=== PATIENT | female | born 1965 | race Caucasian/White ===

== ENCOUNTER 2020-08-24 09:59 | Inpatient (IN) | payer OTHER, SELFPAY ==
[2020-08-24 11:25] LABS: ALT (SGPT) 24 U/L (8-55); AST (SGOT) 66 U/L (5-34); Albumin 3.7 g/dL (3.5-5.0); Alkaline Phosphatase 84 U/L (40-110); Anion Gap 18 mmol/L (10-20); BUN (Urea Nitrogen) 24 mg/dL (9.8-20.1); Bilirubin, Total 10.4 mg/dL (0.2-1.2); Calc. Creatinine Clearance 0 mL/min (70-130); Calcium 10.1 mg/dL (7.8-10.44); Carbon Dioxide 25 mmol/L (22-29); Chloride 94 mmol/L (98-107); Globulin 3.9 g/dL (2.4-3.5); Glucose 98 mg/dL (70-105); Potassium 3.5 mmol/L (3.5-5.1); Protein, Total 7.6 g/dL (6.0-8.3); Sodium 133 mmol/L (136-145)
[2020-08-24 11:33] LABS: Bilirubin 2+ (Negative); Blood, Urine 3+ (Negative); Clarity Turbid (Clear); Glucose, Urine (Dipstick) 100 mg/dL (Negative); Ketone, Urine Negative (Negative); Leukocyte Negative Leu/uL (Negative); Nitrite Negative (Negative); Protein, Urine (Dipstick) 600 mg/dL (Neg-Trace); Specific Gravity, Urine 1.022 (1.002-1.036); Urobilinogen Normal mg/dL (Less than 2)
[2020-08-24] MEDS ORDERED: Heparin 10,000 UNITS/ 10 ML VIAL ONE (11:35)
--- NOTE | 2020-08-24 11:35 | RAD ---
CHEST 1 VIEW: Date: 08/24/2020 HISTORY: Pain. End-stage renal disease. FINDINGS: There is a right-sided HemoSplit dialysis catheter terminating in the cavoatrial junction. Cardiomega ly. There are bilateral pleural effusions, left greater than right. There are scattered alveolar opac ities suggesting edema. No pneumothorax. IMPRESSION: Volume overload. POS: [facility]
[2020-08-24 11:50] LABS: Bacteria/HPF Rare-Few HPF (None Seen); Renal Epithelial 0-3 HPF (None Seen); WBC/HPF 0-3 HPF (0-3)
[2020-08-24 12:09] LABS: CKMB 2.4 ng/mL (0-6.6)
[2020-08-24 12:09] LABS: Hemoglobin 10.2 g/dL (12.0-16.0); Mean Corpuscular Hemoglobin 37.2 pg (27.0-31.0); RBC Distribution Width 20.3 % (11.5-14.5); Red Blood Cell (RBC) Count 2.74 mill/uL (4.20-5.40); White Blood Cell (WBC) Count 3.9 thou/uL (4.8-10.8)
[2020-08-24 12:23] LABS: Anisocytosis MODERATE=16-30 cells (100X) (0-5/hpf); Blister Cells SLIGHT = 2-5 cells (100X) (0-1/hpf); Burr Cells SLIGHT = 2-5 cells (100X) (0-1/hpf); MDiff Complete? YES; Macrocytosis MODERATE=16-30 cells (100X) (0-5/hpf); Mean Platelet Volume 10.4 fL (7.4-10.4); Ovalocytes SLIGHT = 2-5 cells (100X) (0-1/hpf); Platelet Count 41 thou/uL (130-400); Platelet Morphology Comment Appears Decreased; Poikilocytosis SLIGHT = 6-15 cells (100X) (0-5/hpf); Polychromasia SLIGHT = 2-3 cells (100X) (0-2/hpf); Schistocytes SLIGHT = 2-5 cells (100X) (0-1/hpf); Target Cells SLIGHT = 2-5 cells (100X) (0-1/hpf)
[2020-08-24] MEDS ORDERED: Bisacodyl 5 MG TAB PO PRN (14:44)
[2020-08-24] MEDS ORDERED: Nitroglycerin 0.4 MG TAB (25 Tab Bottle) SL PRN (14:45)
--- NOTE | 2020-08-24 15:04 | PDOC.HHP ---
Hospitalist HPI Generalized weakness History of Present Illness: Patient is a pleasant 55-year-old lady who was seen in the emergency room on August 24, 2020. Patient is a poor historian. She is able to provide only some history. Collateral history was obtained from review of medical record and discussion with emergency room physician. Patient reportedly has been having pain in her back and left hip for several days. She reports that it is from a fall. She also reports that she fell today morning. She presented to the emergency room because of back pain. She denies any cough, fevers or chills. She denies any nausea or vomiting. She was scheduled for dialysis today and missed dialysis. She was referred to hospitalist service for admission and further management. ED Course: BP: 101/57, Pulse: 71, Resp: 14, Temp: 98.5 (Oral), Pain: 10, O2 sat: 95 on (Room Air), Time: 08/24/2020 10:04. Allergies/Adverse Reactions: Allergy/AdvReac Type Severity Reaction Status Date / Time promethazine [From Phenergan] Allergy Verified 08/24/20 14:41 Home Medications: Medication Instructions Recorded Confirmed Type Furosemide 40 mg PO DAILY 08/24/20 08/24/20 History Gabapentin 100 mg PO TID 08/24/20 08/24/20 History Lactulose 30 ml PO BID 08/24/20 08/24/20 History Midodrine HCl 5 mg PO TID 08/24/20 08/24/20 History hydrOXYzine Pamoate [Hydroxyzine 25 mg PO Q6H PRN 08/24/20 08/24/20 History Pamoate] oxyCODONE HCl [Oxycodone HCl] 5 mg PO Q6H PRN 08/24/20 08/24/20 History traMADol HCl [Tramadol HCl] 50 mg PO Q12H PRN 08/24/20 08/24/20 History Past History: Past medical history: End-stage renal disease, hepatitis C, cirrhosis, liver failure Surgical history: Dialysis catheter through the right chest wall, left arm surgery and tubal ligation Psychiatric history: Depression Social history: Patient denies alcohol use or tobacco use. She reports marijuana use. Family history: No family history of premature coronary artery disease. Hospitalist OCTAVIA ROS Constitutional: reports: weakness Cardiovascular: denies: chest pain, palpitations, orthopnea, paroxysmal noc. dyspnea, edema, light headedness Gastrointestinal: denies: nausea, vomiting, abdominal pain, diarrhea, consti pation, melena, hematochezia Musculoskeletal: reports: back pain, other (Left hip pain) Neurological: reports: weakness Hospitalist Exam General Appearance: ill appearing Eye: scleral icterus ENT: normocephalic atraumatic Neck: supple, symmetric, no thyromegaly, no lymphadenopathy Heart: RRR, no gallops, no rubs, normal peripheral pulses Respiratory: no wheezes, normal chest expansion, normal percussion Respiratory - other findings: Bilateral crackles Gastrointestinal: soft, non-tender, non-distended, tender to palpation Skin: no rashes Psychiatric: normal affect, normal behavior, oriented to person, oriented to place Hospitalist Results Result Diagrams: 08/24/20 11:43 08/24/20 10:57 Lab results: Laboratory Last Values WBC 3.9 thou/uL (4.8-10.8) L 08/24/20 11:43 RBC 2.74 mill/uL (4.20-5.40) L 08/24/20 11:43 Hgb 10.2 g/dL (12.0-16.0) L 08/24/20 11:43 Hct 32.9 % (36.0-47.0) L 08/24/20 11:43 MCV 120.0 fL (78.0-98.0) H 08/24/20 11:43 MCH 37.2 pg (27.0-31.0) H 08/24/20 11:43 MCHC 31.0 g/dL (32.0-36.0) L 08/24/20 11:43 RDW 20.3 % (11.5-14.5) H 08/24/20 11:43 Plt Count 41 thou/uL (130-400) L 08/24/20 11:43 MPV 10.4 fL (7.4-10.4) 08/24/20 11:43 Neutrophils % (Manual) Not Reportable 08/24/20 11:43 Lymphocytes # Not Reportable 08/24/20 11:43 Plt Morphology Comment Appears Decreased L 08/24/20 11:43 Polychromasia SLIGHT = 2-3 cells (100X) (0-2/hpf) 08/24/20 11:43 Poikilocytosis SLIGHT = 6-15 cells (100X) (0-5/hpf) 08/24/20 11:43 Anisocytosis MODERATE=16-30 cells (100X) (0-5/hpf) H 08/24/20 11:43 Macrocytosis MODERATE=16-30 cells (100X) (0-5/hpf) H 08/24/20 11:43 Target Cells SLIGHT = 2-5 cells (100X) (0-1/hpf) 08/24/20 11:43 Ovalocytes SLIGHT = 2-5 cells (100X) (0-1/hpf) 08/24/20 11:43 Blister Cells SLIGHT = 2-5 cells (100X) (0-1/hpf) 08/24/20 11:43 Elsy Cells SLIGHT = 2-5 cells (100X) (0-1/hpf) 08/24/20 11:43 Schistocytes SLIGHT = 2-5 cells (100X) (0-1/hpf) 08/24/20 11:43 Sodium 133 mmol/L (136-145) L 08/24/20 10:57 Potassium 3.5 mmol/L (3.5-5.1) 08/24/20 10:57 Chloride 94 mmol/L (98-107) L 08/24/20 10:57 Carbon Dioxide 25 mmol/L (22-29) 08/24/20 10:57 Anion Gap 18 mmol/L (10-20) 08/24/20 10:57 BUN 24 mg/dL (9.8-20.1) H 08/24/20 10:57 Creatinine 5.92 mg/dL (0.6-1.1) H 08/24/20 10:57 Estimated GFR (MDRD) 7 08/24/20 10:57 Glucose 98 mg/dL (70-105) 08/24/20 10:57 Lactic Acid 3.0 mmol/L (0.5-2.2) H 08/24/20 14:00 Calcium 10.1 mg/dL (7.8-10.44) 08/24/20 10:57 Total Bilirubin 10.4 mg/dL (0.2-1.2) H 08/24/20 10:57 AST 66 U/L (5-34) H 08/24/20 10:57 ALT 24 U/L (8-55) 08/24/20 10:57 Alkaline Phosphatase 84 U/L (40-110) 08/24/20 10:57 CK-MB (CK-2) 2.4 ng/mL (0-6.6) 08/24/20 10:57 Troponin I 0.137 ng/mL (< 0.028) H 08/24/20 10:57 B-Natriuretic Peptide 3901.8 pg/mL (0-100) H 08/24/20 10:57 Serum Total Protein 7.6 g/dL (6.0-8.3) 08/24/20 10:57 Albumin 3.7 g/dL (3.5-5.0) 08/24/20 10:57 Globulin 3.9 g/dL (2.4-3.5) H 08/24/20 10:57 Albumin/Globulin Ratio 0.9 g/dL (1.2-2.2) L 08/24/20 10:57 Urine Color Dark-Yellow (Yellow) 08/24/20 10:38 Urine Clarity Turbid (Clear) A 08/24/20 10:38 Urine pH 8.0 (5.0-9.0) 08/24/20 10:38 Ur Specific Isabella 1.022 (1.002-1.036) 08/24/20 10:38 Urine Protein 600 mg/dL (Neg-Trace) A 08/24/20 10:38 Urine Glucose (UA) 100 mg/dL (Negative) A 08/24/20 10:38 Urine Ketones Negative mg/dL (Negative) 08/24/20 10:38 Urine Blood 3+ (Negative) A 08/24/20 10:38 Urine Nitrite Negative (Negative) 08/24/20 10:38 Urine Bilirubin 2+ (Negative) A 08/24/20 10:38 Urine Urobilinogen Normal mg/dL (Less than 2) 08/24/20 10:38 Ur Leukocyte Esterase Negative Ebenezer/uL (Negative) 08/24/20 10:38 Urine RBC 4-6 HPF (0-3) A 08/24/20 10:38 Urine WBC 0-3 HPF (0-3) 08/24/20 10:38 Ur Squamous Epith Cells 4-6 HPF (0-3) A 08/24/20 10:38 Ur Transition Epith Cell 11-20 HPF (None Seen) A 08/24/20 10:38 Ur Renal Epithelial Cell 0-3 HPF (None Seen) A 08/24/20 10:38 Urine Bacteria Rare-Few HPF (None Seen) 08/24/20 10:38 EKG Status: image reviewed by me (Normal sinus rhythm, low voltage QRS complexes) Chest x-ray Status: image reviewed by me Additional Comments: CHEST 1 VIEW: Date: 08/24/2020 HISTORY: Pain. End-stage renal disease. FINDINGS: There is a right-sided HemoSplit dialysis catheter terminating in the cavoatrial junction. Cardiomega ly. There are bilateral pleural effusions, left greater than right. There are scattered alveolar opac ities suggesting edema. No pneumothorax. IMPRESSION: Volume overload. Hospitalist H&P A/P (1) Generalized weakness Code(s): R53.1 - WEAKNESS Status: Acute (2) Elevated troponin Code(s): R77.8 - OTHER SPECIFIED ABNORMALITIES OF PLASMA PROTEINS Status: Acut e (3) Abnormal liver function tests Code(s): R94.5 - ABNORMAL RESULTS OF LIVER FUNCTION STUDIES Status: Acute (4) Lactic acidosis Code(s): E87.2 - ACIDOSIS Status: Acute (5) Hyponatremia Code(s): E87.1 - HYPO-OSMOLALITY AND HYPONATREMIA Status: Acute (6) End stage renal disease on dialysis Code(s): N18.6 - END STAGE RENAL DISEASE; Z99.2 - DEPENDENCE ON RENAL DIALYSIS Status: Chronic Plan: Patient will be admitted for evaluation for generalized weakness. PT eval and treat. Check lumbar spine and left hip x-rays. Check 2D echocardiogram to rule out pericardial effusion, given the low voltage QRS complexes. Consult nephrology for maintenance dialysis. Trend troponins. Etiology of lactic acidosis unclear, could be secondary to hypotension. Check blood cultures and urine studies. Patient does not have a primary care provider in this area, moved here from [place] 2 weeks ago. Level of risk: High Level of complexity: High Estimated length of stay in the hospital: Less than 2 midnights
[2020-08-24] MEDS ORDERED: Albumin 25% 25 GM/100 ML BOT IVPB SCH (16:00)
[2020-08-24 16:46] LABS: Troponin I 0.151 ng/mL (< 0.028)
[2020-08-24] MEDS ORDERED: Acetaminophen 325 MG TAB PO PRN (19:30)
[2020-08-24] MEDS ORDERED: Ondansetron ODT 4 MG TAB SL PRN (19:30)
[2020-08-24] MEDS ORDERED: Ondansetron PF 4 MG/2 ML Vial IVP PRN (19:30)
[2020-08-24] MEDS: Heparin 5,000 UNITS/ML VIAL SC SCH ×2 (20:19→20:20)
[2020-08-24 22:39] VITALS: BMI 38.2
--- NOTE | 2020-08-24 23:56 | RAD ---
EXAM: XR Lumbar Spine 2 Or 3 View PROVIDED CLINICAL HISTORY: Low back pain after a fall. COMPARISON: None FINDINGS: There is right convex curvature of the lumbar spine. Multilevel osteophytes are present. Facet hypert rophic changes are seen in the lower lumbar spine. Lateral view is rotated, but no definitive subluxation is seen. Vertebral body heights are within normal limits. No fracture is appreciated. Vas cular calcifications are seen in the abdominal aorta. Ossification overlie the pelvis likely related to phleboliths. IMPRESSION: Multilevel degenerative changes without obvious fracture or subluxation involving the lumbar spine.
--- NOTE | 2020-08-24 23:58 | RAD ---
Exam: XR Hip Lt 2-3 View HISTORY: Left hip pain after a fall. COMPARISON: None FINDINGS: No acute fracture, dislocation, or other acute osseous abnormality is identified. Mild left hip osteoarthritis is present. IMPRESSION: No acute osseous abnormality is identified. If the patient's pain persists, CT scan versus MRI left h ip would be more sensitive study of choice for evaluation of radiographically occult fracture.
[2020-08-25] MEDS: hydrOXYzine Pamoate 25 mg Capsule PO PRN ×2 (02:01→21:01)
[2020-08-25 04:37] LABS: Hemoglobin 9.8 g/dL (12.0-16.0); Mean Corpuscular HGB CONC 30.9 g/dL (32.0-36.0); Mean Corpuscular Hemoglobin 37.2 pg (27.0-31.0); Mean Platelet Volume 11.4 fL (7.4-10.4); Platelet Count 26 thou/uL (130-400); RBC Distribution Width 19.6 % (11.5-14.5); Red Blood Cell (RBC) Count 2.63 mill/uL (4.20-5.40)
[2020-08-25 04:52] LABS: Anion Gap 17 mmol/L (10-20); BUN (Urea Nitrogen) 15 mg/dL (9.8-20.1); Calc. Creatinine Clearance 26 mL/min (70-130); Calcium 9.6 mg/dL (7.8-10.44); Carbon Dioxide 24 mmol/L (22-29); Chloride 98 mmol/L (98-107); Glucose 94 mg/dL (70-105); Potassium 3.2 mmol/L (3.5-5.1); Sodium 136 mmol/L (136-145)
[2020-08-25 05:06] LABS: Band 3 % (5-11); Eosinophils 2 % (0-10); Lymphocytes 23 % (21-51); MDiff Complete? YES; Metamyelocyte 1 % (0-0); Monocytes 15 % (0-10); Neutrophil 56 % (42-75); Platelet Morphology Comment Appears Decreased
--- NOTE | 2020-08-25 06:21 | CON ---
DATE OF CONSULTATION: 08/24/2020 CONSULTING PHYSICIAN: Manjit Worrell MD REASON FOR CONSULTATION: End-stage renal disease evaluation and care. REASON FOR ADMISSION: Weakness. HISTORY OF PRESENT ILLNESS: This is a 55-year-old female with history of end-stage renal disease, hepatitis C, and cirrhosis, came to the hospital with weakness and was found to have fluid overload. Nephrology consulted for dialysis. She gets dialysis on Friday, , and Friday. No nausea or vomiting. The patient was seen during dialysis. Denies any chest pain, palpitation. PAST MEDICAL HISTORY: Positive for end-stage renal disease, hepatitis C, and cirrhosis. PAST SURGICAL HISTORY: Dialysis access placement, left arm surgery, tubal ligation. HOME MEDICATIONS: Reviewed. SOCIAL HISTORY: No smoking, alcohol. She has a history of marijuana use. FAMILY HISTORY: No history of kidney disease. REVIEW OF SYSTEMS: CONSTITUTIONAL: Negative for weight loss or gain, ability to conduct usual activities. SKIN: Negative for rash, itching. EYES: Negative for double vision, pain. ENT/MOUTH: Negative for nose bleeding, neck stiffness, pain, tenderness. CARDIOVASCULAR: Negative for palpitations, dyspnea on exertion, orthopnea. RESPIRATORY: Negative for shortness of breath, wheezing, cough, hemoptysis, fever or night sweats. GASTROINTESTINAL: Negative for poor appetite, abdominal pain, heartburn, nausea, vomiting, constipation, or diarrhea. GENITOURINARY: Negative for urgency, frequency, dysuria, nocturia. MUSCULOSKELETAL: Negative for pain, swelling. NEUROLOGIC/PSYCHIATRIC: Negative for anxiety, depression. ALLERGY/IMMUNOLOGIC: Negative for skin rash, bleeding tendency. PHYSICAL EXAMINATION: GENERAL: This is a well-built female, in no apparent distress. VITAL SIGNS: Temperature 98.5, pulse 71, respiratory rate 20, and blood pressure 101/57. HEENT: Atraumatic and normocephalic. Oral mucosa moist. NECK: Supple. CV: S1 and S2 heard. Rate and rhythm regular. RESPIRATORY: Clear. GI: Abdomen is soft. MUSCULOSKELETAL: 1+ edema. DERMATOLOGIC: No skin rash. NEUROLOGICAL: Alert and awake. PSYCHIATRIC: Normal mood and affect. LABORATORY DATA: Hemoglobin is 10.2. Potassium is 3.5, BUN is 24, creatinine is 5.9. ASSESSMENT AND PLAN: 1. End-stage renal disease. Continue on hemodialysis as tolerated. 2. Edema. 3. History of hypertension. 4. Anemia of chronic disease. The patient is seen during dialysis, tolerating well. Continue dialysis, but due to hypotension, not able to have much ultrafiltration. The patient said that she is due for paracentesis too. We will continue on dialysis as tolerated. Thank you for the consult. Job ID: [id number]
[2020-08-25] MEDS: Midodrine HCl 5 MG TAB PO SCH ×3 (08:11→21:01)
[2020-08-25] MEDS ORDERED: Aspirin Chewable 81 MG TAB PO SCH (09:00)
[2020-08-25 09:32] LABS: SARS-CoV-2 PCR by NAA Not Detected (NotDetected)
[2020-08-25] MEDS ORDERED: Potassium Chloride 20 MEQ TAB PO SCH (11:00)
--- NOTE | 2020-08-25 15:56 | PRG ---
DATE OF SERVICE: 08/25/2020 SUBJECTIVE: Patient was seen and examined at bedside and overnight events noted. Patient denies any shortness of breath or chest pain or palpitation. No history of nausea or vomiting or diarrhea or fever or chills or cramps. OBJECTIVE: GENERAL: This is a well-built female, in no apparent distress. VITAL SIGNS: Temperature 97.1. Heart rate 74. Respiratory rate 14. Blood pressure 86/47. HEENT: Atraumatic, normocephalic. Oral mucosa is moist NECK: Supple. CARDIOVASCULAR: S1, S2 heard. Rate and rhythm regular. RESPIRATORY: Clear to auscultation. GASTROINTESTINAL: Abdomen is soft. MUSCULOSKELETAL: No tenderness. No edema. DERMATOLOGIC: No skin rash. NEUROLOGIC: Alert and awake and oriented X3. No focal neurologic deficits. Moving all the extremities. PSYCHIATRIC: Mood and affect normal. LABORATORY DATA: Potassium 3.2, BUN is 15, creatinine is 4.3. ASSESSMENT AND PLAN: 1. End-stage renal disease. Continue dialysis. 2. Edema hypertension. 3. Anemia of chronic disease. Continue on dialysis as tolerated. Job ID: [id number]
--- NOTE | 2020-08-25 17:52 | PDOC.HOSPP ---
- Subjective Encounter Date: 08/25/20 Encounter Time: 17:51 Subjective: Patient seen for follow-up regarding generalized weakness. Sleepy but arousable, denies chest pain or shortness of breath. Reports back pain is better. - Objective Vital Signs & Weight: Vital Signs (12 hours) Temp Pulse Pulse Pulse Pulse Resp BP 08/25/20 15:47 97.8 F 72 12 08/25/20 11:56 97.1 F L 72 14 08/25/20 10:11 72 74 75 92/53 L 08/25/20 09:42 08/25/20 07:50 97.5 F L 73 16 BP BP BP Pulse Ox 08/25/20 15:47 102/55 L 95 08/25/20 11:56 86/47 L 95 08/25/20 10:11 96/51 L 103/56 L 08/25/20 09:42 81/42 L 08/25/20 07:50 87/49 L 98 Weight Weight 251 lb 5 oz I&O: 08/24/20 08/25/20 08/26/20 06:59 06:59 06:59 Intake Total 350 Output Total 12 Balance 338 Result Diagrams: 08/25/20 04:12 08/25/20 04:12 Additional Labs: Labs and MAR reviewed by me EKG Reviewed by me: Yes (Telemetry shows normal sinus rhythm) Hospitalist ROS - Review of Systems Cardiovascular: denies: chest pain, palpitations, orthopnea, paroxysmal noc. dys pnea, edema, light headedness Musculoskeletal: reports: back pain Skin: denies: rash, lesions, rivka, bruising - Medication Medications: Active Medications Generic Name Dose Route Start Last Admin Trade Name Freq PRN Reason Stop Dose Admin Hydroxyzine Pamoate 25 mg 08/25/20 00:54 08/25/20 02:01 Hydroxyzine Pamoate 25 Mg Capsule PO 25 mg Q6H PRN Administration Anxiety Midodrine 5 mg 08/25/20 09:00 08/25/20 15:59 Midodrine Hcl 5 Mg Tab PO 5 mg TID SANJAY Administration Hospitalist Exam Vitals: Vital Signs (12 hours) Temp Pulse Pulse Pulse Pulse Resp BP 08/25/20 15:47 97.8 F 72 12 08/25/20 11:56 97.1 F L 72 14 08/25/20 10:11 72 74 75 92/53 L 08/25/20 09:42 08/25/20 07:50 97.5 F L 73 16 BP BP BP Pulse Ox 08/25/20 15:47 102/55 L 95 08/25/20 11:56 86/47 L 95 08/25/20 10:11 96/51 L 103/56 L 08/25/20 09:42 81/42 L 08/25/20 07:50 87/49 L 98 Weight Weight 251 lb 5 oz General Appearance: awake alert Eye: anicteric sclera ENT: normocephalic atraumatic Neck: supple Heart: RRR Respiratory: CTAB Gastrointestinal: soft, non-tender Skin: no rashes Psychiatric: normal affect, normal behavior Hosp A/P (1) Generalized weakness Code(s): R53.1 - WEAKNESS Status: Acute (2) Elevated troponin Code(s): R77.8 - OTHER SPECIFIED ABNORMALITIES OF PLASMA PROTEINS Status: Acute (3) Abnormal liver function tests Code(s): R94.5 - ABNORMAL RESULTS OF LIVER FUNCTION STUDIES Status: Acute (4) Lactic acidosis Code(s): E87.2 - ACIDOSIS Status: Acute (5) Hyponatremia Code(s): E87.1 - HYPO-OSMOLALITY AND HYPONATREMIA Status: Acute (6) End stage renal disease on dialysis Code(s): N18.6 - END STAGE RENAL DISEASE; Z99.2 - DEPENDENCE ON RENAL DIALYSIS Status: Chronic - Plan (1) Generalized weakness Code(s): R53.1 - WEAKNESS Status: Acute (2) Elevated troponin Code(s): R77.8 - OTHER SPECIFIED ABNORMALITIES OF PLASMA PROTEINS Status: Acute (3) Abnormal liver function tests Code(s): R94.5 - ABNORMAL RESULTS OF LIVER FUNCTION STUDIES Status: Acute (4) Lactic acidosis Code(s): E87.2 - ACIDOSIS Status: Acute (5) Hyponatremia Code(s): E87.1 - HYPO-OSMOLALITY AND HYPONATREMIA Status: Acute (6) End stage renal disease on dialysis Code(s): N18.6 - END STAGE RENAL DISEASE; Z99.2 - DEPENDENCE ON RENAL DIALYSIS Status: Chronic Plan: Generalized weakness improving. PT eval and treat. Nil acute on lumbar spine and left hip x-rays. Elevated troponin likely secondary to end-stage renal disease, patient denies any chest pain. Nephrology following for maintenance dialysis. Patient has a history of chronic hypotension and is on midodrine for the same. Likely home in 24 to 48 hours.
[2020-08-26 04:39] LABS: Mean Corpuscular HGB CONC 31.1 g/dL (32.0-36.0); Mean Corpuscular Hemoglobin 37.7 pg (27.0-31.0); Mean Platelet Volume 11.8 fL (7.4-10.4); Platelet Count 27 thou/uL (130-400); RBC Distribution Width 20.2 % (11.5-14.5); Red Blood Cell (RBC) Count 2.64 mill/uL (4.20-5.40); White Blood Cell (WBC) Count 2.6 thou/uL (4.8-10.8)
[2020-08-26 04:50] LABS: Anion Gap 18 mmol/L (10-20); BUN (Urea Nitrogen) 20 mg/dL (9.8-20.1); Calc. Creatinine Clearance 22 mL/min (70-130); Carbon Dioxide 23 mmol/L (22-29); Chloride 97 mmol/L (98-107); Glucose 102 mg/dL (70-105); Potassium 3.6 mmol/L (3.5-5.1); Sodium 134 mmol/L (136-145)
[2020-08-26 05:34] LABS: Eosinophils 2 % (0-10); Lymphocytes 40 % (21-51); MDiff Complete? YES; Monocytes 15 % (0-10); Myelocyte 1 % (0-0); Neutrophil 42 % (42-75); Platelet Clumps SLIGHT; Platelet Morphology Comment Appears Adequate
[2020-08-26] MEDS: hydrOXYzine Pamoate 25 mg Capsule PO PRN (06:09)
[2020-08-26] MEDS ORDERED: Heparin 10,000 UNITS/ 10 ML VIAL ONE (09:47)
--- NOTE | 2020-08-26 12:00 | PRG ---
DATE OF SERVICE: 08/26/2020 SUBJECTIVE: Patient was seen and examined at bedside and overnight events noted. Patient denies any shortness of breath or chest pain or palpitation. No history of nausea or vomiting or diarrhea or fever or chills or cramps. OBJECTIVE: General: This is a well-built female, in no apparent distress. Vital Signs: Temperature . Heart Rate 71. Respiratory rate 18. Blood pressure 94/50. HEENT: Atraumatic, normocephalic. Oral mucosa is moist. Neck: Supple. Cardiovascular: S1, S2 heard. Rate and rhythm regular. Respiratory: Clear to auscultation. Gastrointestinal: Abdomen is soft. Musculoskeletal: No tenderness. No edema. Dermatologic: No skin rash. Neurologic: Alert and awake and oriented x3. No focal neurologic deficits. Moving all the extremities. Psychiatric: Mood and affect normal. LABORATORY DATA: Potassium 3.6, BUN is 20, creatinine is 5.1. ASSESSMENT AND PLAN: 1. End-stage renal disease, continue on dialysis, TTS. 2. Edema. 3. Hypertension. 4. Anemia of chronic disease. Continue on dialysis on Friday, , and Friday as tolerated. Job ID: [id number]
[2020-08-26 12:35] LABS: HBSAg Index 0.29 S/CO (0-0.99); Hep B Surf Ag Non-Reactive S/CO (NonReactive)
[2020-08-26] MEDS: Midodrine HCl 5 MG TAB PO SCH ×2 (14:45→15:33)
--- NOTE | 2020-08-26 15:29 | PDOC.DS.DS ---
Provider Date of Admission: 08/25/20 16:10 Date of Discharge: 08/26/20 Admitting Provider: Manjit Worrell MD Consultations: Nephrology (Dr. Velásquez) Primary Care Physician: FERNANDO SHARPE MD Course Hospital Course: Discharge diagnosis: 1. Generalized weakness 2. Elevated troponin, likely secondary to end-stage renal disease 3. Hypokalemia 4. Hyponatremia 5. Lactic acidosis 6. Covid test negative Hospital course: Patient is a pleasant 55-year-old lady who was admitted to the hospital on March 24, 2021 for generalized weakness, elevated troponin, lactic acidosis, hyponatremia and end-stage renal disease on dialysis. This was in the context of a recent fall. X-rays of the left hip did not show any acute osseous abnormality. Lumbar spine x-rays showed multilevel degenerative changes without obvious fracture or subluxation involving the lumbar spine. 2D echocardiogram was technically difficult examination, showed a small pericardial effusion, left pleural effusion, left ventricle ejection fraction estimated 50 to 55%, moderately enlarged right ventricle cavity, mildly dilated left atrium, moderately enlarged right atrium, mild mitral regurgitation and mild to moderate tricuspid regurgitation. Patient was seen by nephrology service. She underwent hemodialysis. She also improved symptomatically. She was seen by physical therapy service and was recommended home health for physical therapy. She has been advised to follow-up with her primary care provider to arrange for the same. In terms of the elevated troponin, patient did not have any chest pain. There was no arrhythmias on telemetry. The elevated troponin was most likely second meghan to end-stage renal disease. At the time of this dictation, preliminary blood cultures are negative. She is advised to follow-up with her primary care provider for final blood culture results. Many thanks for allowing me to participate in your patient's care. Please feel free to contact me with any questions or concerns. Discharge destination: Home Total amount of time spent coordinating this discharge: 32 minutes Lab Results: 08/26/20 04:04 08/26/20 04:04 Abnormal Lab Results - Last 48 hrs 08/24/20 16:09: Troponin I 0.151 H 08/24/20 18:22: Troponin I 0.120 H 08/25/20 04:12: Potassium 3.2 L, Creatinine 4.32 H 08/25/20 04:12: WBC 3.0 L, RBC 2.63 L, Hgb 9.8 L, Hct 31.6 L, MCV 120.0 H, MCH 37.2 H, MCHC 30.9 L, RDW 19.6 H, Plt Count 26 L*, MPV 11.4 H, Band Neuts % (Manual) 3 L, Monocytes % (Manual) 15 H, Plt Morphology Comment Appears Decreased L 08/26/20 04:04: Sodium 134 L, Chloride 97 L, Creatinine 5.16 H 08/26/20 04:04: WBC 2.6 L, RBC 2.64 L, Hgb 10.0 L, Hct 31.9 L, MCV 121.0 H, MCH 37.7 H, MCHC 31.1 L, RDW 20.2 H, Plt Count 27 L*, MPV 11.8 H, Monocytes % (Manual) 15 H, Myelocytes % 1 H Microbiology - Entire Visit 08/24/20 16:02 Dialysis - Right Subclavian Vein Blood Culture - Preliminary NO GROWTH AT 48 HOURS 08/24/20 16:02 Dialysis - Right Subclavian Vein Blood Culture - Preliminary NO GROWTH AT 48 HOURS Vitals: Vital Signs (12 hours) Temp Pulse Resp BP Pulse Ox 08/26/20 11:33 98.3 F 71 17 94/50 L 96 08/26/20 07:52 97.8 F 76 18 91/53 L 93 L 08/26/20 04:00 97.5 F L 72 17 92/47 L 97 Weight Admit Weight 251 lb 5 oz Weight 251 lb 5 oz Physical Exam: The patient was seen and examined on the day of discharge. Patient denies chest pain or shortness of breath. Vital signs are stable. S1 and S2 are heard. Lungs are clear to auscultation bilaterally. Problem (1) Generalized weakness Code(s): R53.1 - WEAKNESS Status: Acute (2) Elevated troponin Code(s): R77.8 - OTHER SPECIFIED ABNORMALITIES OF PLASMA PROTEINS Status: Acute (3) Abnormal liver function tests Code(s): R94.5 - ABNORMAL RESULTS OF LIVER FUNCTION STUDIES Status: Acute (4) Lactic acidosis Code(s): E87.2 - ACIDOSIS Status: Acute (5) Hyponatremia Code(s): E87.1 - HYPO-OSMOLALITY AND HYPONATREMIA Status: Acute (6) End stage renal disease on dialysis Code(s): N18.6 - END STAGE RENAL DISEASE; Z99.2 - DEPENDENCE ON RENAL DIALYSIS Status: Chronic Plan Home Medications: Medication Instructions Recorded Confirmed Type Furosemide 40 mg PO DAILY 08/24/20 08/24/20 History Gabapentin 100 mg PO TID 08/24/20 08/24/20 History Lactulose 30 ml PO BID 08/24/20 08/24/20 History Midodrine HCl 5 mg PO TID 08/24/20 08/24/20 History hydrOXYzine Pamoate [Hydroxyzine 25 mg PO Q6H PRN 08/24/20 08/24/20 History Pamoate] oxyCODONE HCl [Oxycodone HCl] 5 mg PO Q6H PRN 08/24/20 08/24/20 History traMADol HCl [Tramadol HCl] 50 mg PO Q12H PRN 08/24/20 08/24/20 History Allergies: promethazine [From Phenergan] Allergy (Verified 08/24/20 14:41) Discharge Instructions:: Follow-up with primary care provider for final blood culture reports. Follow-up with primary care provider to arrange home health for physical therapy. Activity:: Activity as Tolerated Nourishment:: Heart Healthy Diet, Renal Diet Referrals: FERNANDO SHARPE MD [Primary Care Provider] - 3 Days Disposition: HOME Quality CORE MEASURES:: N/A
[2020-08-26 15:56] VITALS: BP 87/52; TEMP 97.9
--- NOTE | 2020-08-30 13:23 | EKG ---
Test Reason : Blood Pressure : / mmHG Vent. Rate : 084 BPM Atrial Rate : 070 BPM P-R Int : 136 ms QRS Dur : 108 ms QT Int : 544 ms P-R-T Axes : 030 082 022 degrees QTc Int : 642 ms Sinus rhythm with occasional , and consecutive Premature ventricular complexes and Fusion complexes Low voltage QRS Septal infarct , age undetermined Prolonged QT Abnormal ECG Confirmed by CUCO DENNIS ([id number]), purchasing expeditor LEILA BOWDEN ([id number]) on 08/30/2020 1:23:00 PM Referred By: Confirmed By:CUCO Lucia
== END 2020-08-26 17:37 | disposition home or self-care (01) | DRG 640 ==
LOC: ERS 09:59 → ERHOLD 14:29 → 2NO 19:06 → OBSVTOIN 08-25 16:10
PROVIDERS: ADMIT Internal Medicine; ATTEND Internal Medicine
PROC: 5A1D70Z Performance of Urinary Filtration, Intermittent, Less than 6 Hours Per Day (ICD-10-PCS; principal; 2020-08-25)
DX: E87.1 Hypo-osmolality and hyponatremia (principal); N18.6 End stage renal disease; E87.2 Acidosis; Z20.822 Contact with and (suspected) exposure to COVID-19; E87.6 Hypokalemia; R79.89 Other specified abnormal findings of blood chemistry; I08.1 Rheumatic disorders of both mitral and tricuspid valves; B18.2 Chronic viral hepatitis C; K74.60 Unspecified cirrhosis of liver; F32.9 Major depressive disorder, single episode, unspecified; F12.10 Cannabis abuse, uncomplicated; D63.1 Anemia in chronic kidney disease; I95.89 Other hypotension; Z88.8 Allergy status to other drugs, medicaments and biological substances; Z99.2 Dependence on renal dialysis; Z79.899 Other long term (current) drug therapy
CPT/HCPCS: 36415; 51701; 71045; 72100; 80048; 80053; 81003; 81015; 82553; 83605; 83880; 84484; 85025; 87340; 87635; 90935; 93005; 93306; 94760; G0257; G0378; J1644; P9047; Q0177; U0003; U0005

== ENCOUNTER 2020-09-09 10:52 | Inpatient (IN) | payer SELFPAY ==
[~2020-09-09 10:52] MED LIST: Heparin 10,000 UNITS/ 10 ML VIAL ONE
[2020-09-09] MEDS ORDERED: Iopamidol-370 76% 500 ML 1 ML ONE (11:33)
[2020-09-09 11:52] LABS: #Eosinphils 0.1 thou/uL (0.0-0.7); #Lymphocytes 1.3 thou/uL (1.20-3.40); #Monocytes 0.6 thou/uL (0.11-0.59); #Neutrophils 2.1 thou/uL (1.40-6.50); %Basophils 0.6 % (0.0-1.0); %Eosinophils 2.4 % (0.0-10.0); %Lymphocytes 31.6 % (21.0-51.0); %Monocytes 14.2 % (0.0-10.0); %Neutrophils 51.1 % (42.0-75.0); Hemoglobin 10.4 g/dL (12.0-16.0); Mean Corpuscular HGB CONC 31.4 g/dL (32.0-36.0); Mean Corpuscular Hemoglobin 37.2 pg (27.0-31.0); Mean Platelet Volume 9.6 fL (7.4-10.4); Platelet Count 55 thou/uL (130-400); RBC Distribution Width 17.7 % (11.5-14.5); White Blood Cell (WBC) Count 4.2 thou/uL (4.8-10.8)
--- NOTE | 2020-09-09 11:59 | RAD ---
PORTABLE CHEST: HISTORY: Shortness of breath. COMPARISON: 08/24/2020 exam. FINDINGS: Heart size is enlarged. The pulmonary vessels remain engorged. Left-sided effusion may be slightly increased as compared to the prior exam. Otherwise, relatively stable chest. IMPRESSION: Cardiomegaly with pulmonary edema changes. Suggestion of some slight increase in size to the left si de-pleural effusion. POS: JOSE
[2020-09-09 12:11] LABS: ALT (SGPT) 25 U/L (8-55); AST (SGOT) 64 U/L (5-34); Albumin 3.3 g/dL (3.5-5.0); Alkaline Phosphatase 93 U/L (40-110); Anion Gap 18 mmol/L (10-20); BUN (Urea Nitrogen) 29 mg/dL (9.8-20.1); Bilirubin, Total 13.1 mg/dL (0.2-1.2); Calc. Creatinine Clearance 0 mL/min (70-130); Calcium 10.3 mg/dL (7.8-10.44); Carbon Dioxide 29 mmol/L (22-29); Chloride 96 mmol/L (98-107); Glucose 72 mg/dL (70-105); Potassium 3.5 mmol/L (3.5-5.1); Protein, Total 7.3 g/dL (6.0-8.3); Sodium 139 mmol/L (136-145)
[2020-09-09 12:17] LABS: Base Excess-Venous 3.2 mmol/L (-2.0 to 3.0); Bicarbonate (HCO3v) 28.6 mmol/L (22.0-28.0); CO2 Tension (PvCO2) 46.2 mmHg (40.0-50.0); Chloride 96 mmol/L (98-107); Potassium 3.7 mmol/L (3.5-5.1); Sodium 137 mmol/L (138-145); vO2 Saturation-calc 52.4 % (60.0-85.0)
[2020-09-09 12:27] LABS: Bilirubin Large (Negative); Blood, Urine Large (Negative); Glucose, Urine (Dipstick) Negative (Negative); Ketone, Urine 15 mg/dL (Negative); Leukocyte Trace (Negative); Nitrite Positive (Negative); Protein, Urine (Dipstick) > or equal to 300 mg/dL (Neg-Trace); Urobilinogen 0.2 mg/dL (Less than 2)
[2020-09-09 12:33] LABS: CKMB 1.9 ng/mL (0-6.6)
[2020-09-09 12:38] LABS: Clarity Hazy (Clear)
[2020-09-09 12:40] LABS: Specific Gravity, Urine 1.025 (1.002-1.036)
[2020-09-09 12:41] LABS: Squamous Epithelial 0-3 HPF (0-3); Yeast-Budding 1+ HPF (None Seen)
[2020-09-09] MEDS ORDERED: cefTRIAXone\\ROCEPHIN 2 GM VIAL ONE (13:50)
[2020-09-09 13:56] LABS: SARS-CoV-2 NAA Rapid Test Not Detected (NotDetected)
--- NOTE | 2020-09-09 13:59 | CT ---
CTA Angio Chest W WO Con History: Shortness of breath Comparison: Radiograph same day Findings: CT in December chest performed after the intravenous ministration of contrast. 3-D rendering pr ovided. Large left layering pleural effusion involving 60-70% of the hemithorax volume.. Alveolar opacities w ithin the right upper lobe. Heart size is markedly enlarged. The inferior vena cava is markedly distended. Liver is small and lik ama cirrhotic. Cholelithiasis. Aortic contour is nonaneurysmal. Hypodensity of the left adrenal vein incompletely evaluated. High-grade third spacing of fluid. No proximal segmental pulmonary arterial filling defect. Sternum a nd manubrium are intact. Thoracic spine is intact. Satisfactory location of the dialysis catheter tip. No acute osseous abnormality. Impression: 1. Large left layering pleural effusion involving approximate 70% of the hemithorax volume. Compressi ve atelectasis within left lower lobe and lingula. 2. Few groundglass opacities within the right upper lobe may reflect infection/aspiration and less li melissa alveolar edema. 3. Cardiomegaly with left ventricular apical thinning likely sequelae of prior infarction. 4. Marked distention of the inferior vena cava likely sequelae of increased right heart pressures. 5. Small cirrhotic liver. 6. Cholelithiasis. 7. Splenomegaly likely portal hypertension. 8. Incomplete evaluation of left adrenal nodule. Nonemergent abdomen/pelvis CT recommended. 9. [id number] third spacing of fluid.
[2020-09-09] MEDS ORDERED: Acetaminophen 325 MG TAB PO PRN (16:04)
[2020-09-09] MEDS ORDERED: Ondansetron PF 4 MG/2 ML Vial IVP PRN (16:04)
--- NOTE | 2020-09-09 17:01 | PDOC.HHP ---
Hospitalist HPI SOB History of Present Illness: Patient is 55 year-old female with PMH of ESRD on HD (), HTD, Hep C cirrhosis, and DDD who presents to the ED with CC of SOB that started today. Patient missed her HD 2 days ago due weather condition, today she was planing to go to her dialysis center but was unable to do that due to SOB. She also reports some cough with intermittent phlegm. She denies fever or chills. She also reports back pain that has been going on for about 1 month. Patient was admitted here from 08/25-08/26/2020 for generalized weakness and electrolyte abnormalities. ED Course: In the ED, patient was noted to be tachypenic but Spo2 in the mid 90's on RA. CTA chest showed large left-sided pleural effusion. Allergies/Adverse Reactions: Allergy/AdvReac Type Severity Reaction Status Date / Time promethazine [From Phenergan] Allergy Verified 08/24/20 14:41 Home Medications: Medication Instructions Recorded Confirmed Type Furosemide 40 mg PO DAILY 08/24/20 08/24/20 History Gabapentin 100 mg PO TID 08/24/20 08/24/20 History Lactulose 30 ml PO BID 08/24/20 08/24/20 History Midodrine HCl 5 mg PO TID 08/24/20 08/24/20 History hydrOXYzine Pamoate [Hydroxyzine 25 mg PO Q6H PRN 08/24/20 08/24/20 History Pamoate] oxyCODONE HCl [Oxycodone HCl] 5 mg PO Q6H PRN 08/24/20 08/24/20 History traMADol HCl [Tramadol HCl] 50 mg PO Q12H PRN 08/24/20 08/24/20 History Past History: PMHx: ESRD on HD (), HTD, Hep C cirrhosis, and DDD PSHx: Right-side Permcath placement, Tubal ligation, Left arm surgery FHx: non-contributory Social: uses marijuana infrequently, denies alcohol use or smoking Hospitalist HPI ROS Constitutional: denies: fever, chills Respiratory: reports: cough, shortness of breath Cardiovascular: denies: chest pain Gastrointestinal: denies: nausea, vomiting Genitourinary: denies: dysuria All other systems reviewed; all pertinent +/- noted in HPI/Subj Hospitalist Exam General Appearance: NAD Eye: PERRL, scleral icterus ENT: dry oral mucosa Neck: no JVD Heart: RRR, no murmur Respiratory - other findings: Crackles and decreased breath sound on the left side, clear on the right Gastrointestinal: soft, non-tender, non-distended Extremities: 1+ LE edema (bilaterally) Neurological - other findings: initially drowsy but later became alert Psychiatric: oriented to person, oriented to time Hospitalist Results Result Diagrams: 09/09/20 11:33 09/09/20 11:33 Lab results: Laboratory Last Values WBC 4.2 thou/uL (4.8-10.8) L 09/09/20 11:33 RBC 2.80 mill/uL (4.20-5.40) L 09/09/20 11:33 Hgb 10.4 g/dL (12.0-16.0) L 09/09/20 11:33 Hct 33.2 % (36.0-47.0) L 09/09/20 11:33 POC Venous Hct 32.0 % (36.0-47.0) L 09/09/20 11:21 MCV 119.0 fL (78.0-98.0) H 09/09/20 11:33 MCH 37.2 pg (27.0-31.0) H 09/09/20 11:33 MCHC 31.4 g/dL (32.0-36.0) L 09/09/20 11:33 RDW 17.7 % (11.5-14.5) H 09/09/20 11:33 Plt Count 55 thou/uL (130-400) L 09/09/20 11:33 MPV 9.6 fL (7.4-10.4) 09/09/20 11:33 Neutrophils % 51.1 % (42.0-75.0) 09/09/20 11:33 Neutrophils % (Manual) Not Reportable 09/09/20 11:33 Lymphocytes % 31.6 % (21.0-51.0) 09/09/20 11:33 Monocytes % 14.2 % (0.0-10.0) H 09/09/20 11:33 Eosinophils % 2.4 % (0.0-10.0) 09/09/20 11:33 Basophils % 0.6 % (0.0-1.0) 09/09/20 11:33 Neutrophils # 2.1 thou/uL (1.40-6.50) 09/09/20 11:33 Lymphocytes # 1.3 thou/uL (1.20-3.40) 09/09/20 11:33 Monocytes # 0.6 thou/uL (0.11-0.59) H 09/09/20 11:33 Eosinophils # 0.1 thou/uL (0.0-0.7) 09/09/20 11:33 Basophils # 0.0 thou/uL (0.0-0.2) 09/09/20 11:33 ESR Westergren 18 mm/hr (Less than 30) 09/09/20 11: D-Dimer 5.61 *mcg/mL (0.27-0.43) H 09/09/20 11:33 POC Bicarbonate Calc 28.6 mmol/L (22.0-28.0) H 09/09/20 11:21 POC VBG pH 7.400 (7.320-7.430) 09/09/20 11: VBG pCO2 46.2 mmHg (40.0-50.0) 09/09/20 11: VBG pO2 28.2 mmHg (35.0-45.0) L 09/09/20 11:21 POC VBG CO2 (Calc) 30.0 mmol/L (22.0-28.0) H 09/09/20 11:21 POC VBG O2 Sat (Calc) 52.4 % (60.0-85.0) L 09/09/20 11:21 POC VBG Base Excess 3.2 mmol/L (-2.0 to 3.0) H 09/09/20 11: POC VBG Hemoglobin Calc 11.0 g/dL (12.0-16.0) L 09/09/20 11: POC Venous Sodium 137 mmol/L (138-145) L 09/09/20 11: Sodium 139 mmol/L (136-145) 09/09/20 11:33 POC Venous Potassium 3.7 mmol/L (3.5-5.1) 09/09/20 11: Potassium 3.5 mmol/L (3.5-5.1) 09/09/20 11:33 POC Venous Chloride 96 mmol/L (98-107) L 09/09/20 11:21 Chloride 96 mmol/L (98-107) L 09/09/20 11:33 Carbon Dioxide 29 mmol/L (22-29) 09/09/20 11:33 Anion Gap 18 mmol/L (10-20) 09/09/20 11:33 POC Harvey Anion Gap Calc 16 mmol/L (10-20) 09/09/20 11:21 BUN 29 mg/dL (9.8-20.1) H 09/09/20 11:33 Creatinine 6.99 mg/dL (0.6-1.1) H 09/09/20 11:33 Estimated GFR (MDRD) 6 09/09/20 11:33 Glucose 72 mg/dL (70-105) 09/09/20 11:33 Calcium 10.3 mg/dL (7.8-10.44) 09/09/20 11:33 POC Venous Ion Calcium 1.10 mmol/L (1.15-1.33) L 09/09/20 11:21 Total Bilirubin 13.1 mg/dL (0.2-1.2) H 09/09/20 11:33 AST 64 U/L (5-34) H 09/09/20 11:33 ALT 25 U/L (8-55) 09/09/20 11:33 Alkaline Phosphatase 93 U/L (40-110) 09/09/20 11:33 Ammonia 50 umol/L (18-72) 09/09/20 12:19 CK-MB (CK-2) 1.9 ng/mL (0-6.6) 09/09/20 11:33 Troponin I 0.118 ng/mL (< 0.028) H 09/09/20 11:33 C-Reactive Protein 2.48 mg/dL (= or < 0.5) H 09/09/20 11:33 B-Natriuretic Peptide 6830.1 pg/mL (0-100) H 09/09/20 11:52 Serum Total Protein 7.3 g/dL (6.0-8.3) 09/09/20 11:33 Albumin 3.3 g/dL (3.5-5.0) L 09/09/20 11:33 Globulin 4.0 g/dL (2.4-3.5) H 09/09/20 11:33 Albumin/Globulin Ratio 0.8 g/dL (1.2-2.2) L 09/09/20 11:33 Lipase 63 U/L (8-78) 09/09/20 11:33 Urine Color Dark Yellow (Yellow) 09/09/20 12:03 Urine Clarity Hazy (Clear) 09/09/20 12:03 Urine pH 5.0 (5.0-9.0) 09/09/20 12:03 Ur Specific Wayne 1.025 (1.002-1.036) 09/09/20 12:03 Urine Protein > or equal to 300 mg/dL (Neg-Trace) A 09/09/20 12:03 Urine Glucose (UA) Negative mg/dL (Negative) 09/09/20 12:03 Urine Ketones 15 mg/dL (Negative) A 09/09/20 12:03 Urine Blood Large (Negative) A 09/09/20 12:03 Urine Nitrite Positive (Negative) A 09/09/20 12:03 Urine Bilirubin Large (Negative) A 09/09/20 12:03 Urine Urobilinogen 0.2 mg/dL (Less than 2) 09/09/20 12:03 Ur Leukocyte Esterase Trace (Negative) H 09/09/20 12:03 Urine RBC 11-20 HPF (0-3) A 09/09/20 12:03 Urine WBC 4-6 HPF (0-3) A 09/09/20 12:03 Ur Squamous Epith Cells 0-3 HPF (0-3) 09/09/20 12:03 Urine Yeast (Budding) 1+ HPF (None Seen) A 09/09/20 12:03 Influenza A RNA INAAT Not Detected (NotDetected) 09/09/20 13:00 Influenza B RNA INAAT Not Detected (NotDetected) 09/09/20 13:00 SARS-CoV-2 Rap RNA(RT-PCR) Not Detected (NotDetected) 09/09/20 13:00 Critical Antonia Read Back Critical Value 09/09/20 11:21 Chest x-ray Status: image reviewed by me CT scan - chest Status: image reviewed by nd Hospitalist H&P A/P (1) Pleural effusion Code(s): J90 - PLEURAL EFFUSION, NOT ELSEWHERE CLASSIFIED Status: Acute Assessment and Plan: CT showed large left-sided pleural effusion. Echo done earlier this month showed EF: 50-55%. Plan: -IR consulted for therapeutic thoracentesis (2) Volume overload Code(s): E87.70 - FLUID OVERLOAD, UNSPECIFIED Status: Acute Assessment and Plan: likely due to missed HD. CT chest also showed few groundglass opacities within the RUL concerning for infection/aspiration and less likely alveolar edema. Patient afebrile with no leukocytosis. Plan: -patient is getting HD today -Nephrology consulted. Appreciate recs -procalcitonin level -Zosyn renally dose (3) UTI (urinary tract infection) Status: Acute Qualifiers: Urinary tract infection type: acute cystitis Assessment and Plan: plan: -f/u urine culture -Zosyn as above (4) Elevated troponin Code(s): R77.8 - OTHER SPECIFIED ABNORMALITIES OF PLASMA PROTEINS Status: Chronic Assessment and Plan: Likely associated with her ESRD. Plan: -will trend troponin (5) End stage renal disease on dialysis Code(s): N18.6 - END STAGE RENAL DISEASE; Z99.2 - DEPENDENCE ON RENAL DIALYSIS Status: Chronic Assessment and Plan: Plan: -patient is getting HD today (6) Hepatic cirrhosis due to chronic hepatitis C infection Code(s): B18.2 - CHRONIC VIRAL HEPATITIS C; K74.60 - UNSPECIFIED CIRRHOSIS OF LIVER Status: Acute Assessment and Plan: Plan: -Lactulose (7) Adrenal nodule Code(s): E27.8 - OTHER SPECIFIED DISORDERS OF ADRENAL GLAND Status: Chronic Assessment and Plan: CTA chest showed incomplete evaluation of left adrenal nodule. Nonemergent CT A/P recommended. Plan: -f/u CT abdomen/pelvis outpatient
[2020-09-09 20:01] LABS: CKMB 1.7 ng/mL (0-6.6)
[2020-09-09] MEDS ORDERED: Heparin 5,000 UNITS/ML VIAL SC SCH (21:00)
[2020-09-09] MEDS ORDERED: Midodrine HCl 5 MG TAB PO SCH (23:45)
[2020-09-09] MEDS: oxyCODONE 5 MG TAB PO PRN (23:49)
[2020-09-09] MEDS: hydrOXYzine Pamoate 25 mg Capsule PO PRN (23:50)
[2020-09-09] MEDS: Piperacillin/Tazobactam 2.25 GM in Sodium Chloride 0.9% 100 ML IVPB SCH (23:51)
[2020-09-10 04:38] LABS: INR-International Normal Ratio 2.7; Prothrombin Time 29.1 sec (12.0-14.7)
[2020-09-10 04:39] LABS: PTT 58.1 sec (22.9-36.1); Platelet Count 29 thou/uL (130-400)
[2020-09-10 05:04] LABS: Band 8 % (5-11); Hemoglobin 10.1 g/dL (12.0-16.0); Hypochromia SLIGHT = 6-15 cells (100X) (0-5/hpf); Lymphocytes 12 % (21-51); MDiff Complete? YES; Macrocytosis SLIGHT = 6-15 cells (100X) (0-5/hpf); Mean Corpuscular HGB CONC 32.1 g/dL (32.0-36.0); Mean Corpuscular Hemoglobin 38.9 pg (27.0-31.0); Mean Platelet Volume 10.1 fL (7.4-10.4); Monocytes 10 % (0-10); Neutrophil 70 % (42-75); Nucleated RBC 1 % (0); Platelet Morphology Comment Appears Decreased; RBC Distribution Width 17.7 % (11.5-14.5); White Blood Cell (WBC) Count 4.1 thou/uL (4.8-10.8)
[2020-09-10 05:12] LABS: Anion Gap 21 mmol/L (10-20); BUN (Urea Nitrogen) 16 mg/dL (9.8-20.1); Calc. Creatinine Clearance 24 mL/min (70-130); Calcium 9.8 mg/dL (7.8-10.44); Carbon Dioxide 21 mmol/L (22-29); Chloride 98 mmol/L (98-107); Potassium 3.5 mmol/L (3.5-5.1); Sodium 136 mmol/L (136-145)
[2020-09-10 05:15] LABS: Glucose 59 mg/dL (70-105)
[2020-09-10] MEDS ORDERED: Dextrose 50% Abboject 50 ML SYRINGE SLOW IVP SCH (05:32)
[2020-09-10] MEDS ORDERED: Dextrose 50% Abboject 50 ML SYRINGE ONE (05:36)
[2020-09-10] MEDS: Piperacillin/Tazobactam 2.25 GM in Sodium Chloride 0.9% 100 ML IVPB SCH (06:02)
[2020-09-10] MEDS: Dextrose 5% in Water 1,000 ML IV SCH ×2 (06:06→17:16)
[2020-09-10] MEDS: Midodrine HCl 5 MG TAB PO SCH ×3 (07:45→21:53)
--- NOTE | 2020-09-10 07:54 | PDOC.HOSPP ---
- Subjective Encounter Date: 09/10/20 Subjective: Patient denies chest pain, SOB or cough. She continues to have lower back pain. - Objective Vital Signs & Weight: Vital Signs (12 hours) Temp Pulse Resp BP BP Pulse Ox 09/10/20 07:39 88 18 85/50 L 94 L 09/10/20 05:45 86/54 L 09/10/20 04:42 94 L 09/10/20 04:35 80/60 L 09/10/20 04:00 98 F 87 20 77/50 L 93 L 09/10/20 00:17 97.9 F 83 22 H 86/52 L 93 L 09/09/20 23:40 93 L Weight Weight 248 lb 9.6 oz Result Diagrams: 09/10/20 03:58 09/10/20 03:58 Hospitalist ROS - Review of Systems Respiratory: denies: cough, shortness of breath Cardiovascular: denies: chest pain - Medication Medications: Active Medications Generic Name Dose Route Start Last Admin Trade Name Freq PRN Reason Stop Dose Admin Hydroxyzine Pamoate 25 mg 09/09/20 22:56 09/09/20 23:50 Hydroxyzine Pamoate 25 Mg Capsule PO 25 mg Q6H PRN Administration Anxiety Piperacillin Sod/Tazobactam 100 mls @ 200 mls/hr 09/09/20 22:00 09/10/20 06:02 Sod 2.25 gm/ Sodium Chloride IVPB 100 mls Q8HR SANJAY Administration Dextrose/Water 1,000 mls @ 75 mls/hr 09/10/20 06:00 09/10/20 06:06 D5w IV 1,000 mls .[id number] SANJAY Administration Lactulose 30 gm 09/10/20 06:00 09/10/20 07:45 Lactulose 20 Gm/30 Ml Udcup PO Not Given Q8HR SANJAY Midodrine 15 mg 09/10/20 09:00 09/10/20 07:45 Midodrine Hcl 5 Mg Tab PO 15 mg TID SANJAY Administration Oxycodone HCl 5 mg 09/09/20 23:14 09/09/20 23:49 Oxycodone 5 Mg Tab PO 5 mg Q6H PRN Administration Pain Hospitalist Exam Vitals: Vital Signs (12 hours) Temp Pulse Resp BP BP Pulse Ox 09/10/20 07:39 88 18 85/50 L 94 L 09/10/20 05:45 86/54 L 09/10/20 04:42 94 L 09/10/20 04:35 80/60 L 09/10/20 04:00 98 F 87 20 77/50 L 93 L 09/10/20 00:17 97.9 F 83 22 H 86/52 L 93 L 09/09/20 23:40 93 L Weight Weight 248 lb 9.6 oz General Appearance: NAD General - other findings: drowsy but easily arousbale to vrebal stimuli, follows command ENT: moist mucosa Neck: no JVD Heart: RRR, no murmur Respiratory: no tachypnea Respiratory - other findings: crackles on the LLL otherwise clear Gastrointestinal: soft, non-tender, non-distended Extremities - other findings: trace bilateral LE edema Neurological - other findings: dowsy but arousable to verbal stimuli, follows command Musculoskeletal - other findings: no tenderness on the back, LE stregth appears to be normal bilaterally Hosp A/P (1) Hypotension Status: Acute Plan: patient was noted to be hypotensive overnight with SBP in the 80's. This is likely due to her hx of cirrhosis in combination with the HD that she had yesterday. Plan: -midodrine started -will repeat Echo. Recent Echo showed small pericardial effusion, EKG on this admission showed low voltage QRS. No JVD or tachycardia on exam. (2) Pleural effusion Code(s): J90 - PLEURAL EFFUSION, NOT ELSEWHERE CLASSIFIED Status: Acute Plan: CT chest showed left-sided pleural effusion. IR was consulted for therapeutic thoracentesis, however this was not done due to thrombocytopenia. Currently on 2L NC O2 supplement with SPo2 in the mid 90's. Plan: -O2 supplement as needed -HD as tolerated (3) Volume overload Code(s): E87.70 - FLUID OVERLOAD, UNSPECIFIED Status: Acute Plan: likely from missed HD. She had HD yesterday. CT chest showed findings concerning for pneumonia, patient was initially put on Zosyn but this was stopped as the procalcitonin level is low and PNA is less likely. Plan: -nephrology following appreciate recs (4) UTI (urinary tract infection) Status: Acute Qualifiers: Urinary tract infection type: acute cystitis Plan: Plan: -f/u urine culture -Ceftriaxone (5) Elevated troponin Code(s): R77.8 - OTHER SPECIFIED ABNORMALITIES OF PLASMA PROTEINS Status: Chronic Plan: Chronic. Trended down. (6) End stage renal disease on dialysis Code(s): N18.6 - END STAGE RENAL DISEASE; Z99.2 - DEPENDENCE ON RENAL DIALYSIS Status: Chronic Plan: Plan: -Nephrology following. Appreciate recs (7) Hepatic cirrhosis due to chronic hepatitis C infection Code(s): B18.2 - CHRONIC VIRAL HEPATITIS C; K74.60 - UNSPECIFIED CIRRHOSIS OF LIVER Status: Chronic Plan: Plan: -cont Lactulose (8) Adrenal nodule Code(s): E27.8 - OTHER SPECIFIED DISORDERS OF ADRENAL GLAND Status: Chronic Plan: seen on CT chest. Nonemergent CT A/P recommended. Plan: -CT A/P outpatient
--- NOTE | 2020-09-10 09:33 | ULT ---
GALLBLADDER: HISTORY: Right upper quadrant pain. FINDINGS: Real-time imaging of the right upper quadrant shows a contracted gallbladder with gallstones. Gallbl adder wall is thickened. The common duct is 4 mm. Liver has a heterogeneous echotexture, but no foc al discrete masses. The right kidney is normal in size and not obstructed. It is of mild increased echogenicity raising the possibility of underlying medical renal parenchymal disease. Trace ascites is noted. IMPRESSION: 1. Contracted gallbladder with gallstones and thick wall to the gallbladder. The common duct is wit hin normal limits with caliber 4 mm. 2. Trace ascites. 3. Increased echogenicity to the cortex of the right kidney suggesting underlying medical renal dise ase. POS: OFF
--- NOTE | 2020-09-10 11:20 | CON ---
DATE OF CONSULTATION: 09/09/2020 CONSULTING PHYSICIAN: ER physician. REASON FOR CONSULTATION: End-stage renal disease evaluation and care. REASON FOR ADMISSION: Weakness. HISTORY OF PRESENT ILLNESS: This is a 55-year-old female with history of end-stage renal disease, hepatitis C, cirrhosis, who came to the hospital with weakness. The patient missed dialysis due to back pain and was taken to the ER and was evaluated. Nephrology consulted for maintenance hemodialysis. The patient was seen during dialysis and is tolerating well, though she is very lethargic at times. PAST MEDICAL HISTORY: Positive for end-stage renal disease, hepatitis C, and cirrhosis. PAST SURGICAL HISTORY: Dialysis access placement, tubal ligation, and left arm surgery. HOME MEDICATIONS: Reviewed. ALLERGIES: PROMETHAZINE. SOCIAL HISTORY: No smoking, alcohol, or illicit drugs abuse. FAMILY HISTORY: No history of any kidney disease. REVIEW OF SYSTEMS: CONSTITUTIONAL: Negative for weight loss or gain, ability to conduct usual activities. SKIN: Negative for rash, itching. EYES: Negative for double vision, pain. ENT/MOUTH: Negative for nose bleeding, neck stiffness, pain, tenderness. CARDIOVASCULAR: Negative for palpitations, dyspnea on exertion, orthopnea. RESPIRATORY: Negative for shortness of breath, wheezing, cough, hemoptysis, fever or night sweats. GASTROINTESTINAL: Negative for poor appetite, abdominal pain, heartburn, nausea, vomiting, constipation, or diarrhea. GENITOURINARY: Negative for urgency, frequency, dysuria, nocturia. MUSCULOSKELETAL: Negative for pain, swelling. NEUROLOGIC/PSYCHIATRIC: Negative for anxiety, depression. ALLERGY/IMMUNOLOGIC: Negative for skin rash, bleeding tendency. PHYSICAL EXAMINATION: GENERAL: This is a well-built female, in no apparent distress. VITAL SIGNS: Reviewed. HEENT: Atraumatic, normocephalic. Oral mucosa moist. NECK: Supple. CV: S1 and S2. Rate and rhythm are regular. RESPIRATORY: Clear. GASTROINTESTINAL: Abdomen is soft. MUSCULOSKELETAL: 1+ edema. DERMATOLOGIC: No skin rash. NEUROLOGIC: Alert and awake. PSYCHIATRIC: Mood and affect normal. LABORATORY DATA: Hemoglobin is 10.4, potassium 3.5, BUN is 29, and creatinine is 6.9. ASSESSMENT AND PLAN: 1. End-stage renal disease. Plan to have dialysis. 2. Edema, controlled. 3. Hypertension. 4. Anemia of chronic disease. 5. Hypoalbuminemia. 6. History of cirrhosis. 7. Fluid overload. We will remove fluid if tolerated. The patient is hypotensive. Plan to have dialysis as tolerated. Prognosis poor. Thank you for the consult. We will follow. Job ID: [id number]
[2020-09-10] MEDS: cefTRIAXone\\ROCEPHIN 1 GM in Sodium Chloride 0.9% 100 ML IVPB SCH (13:28)
--- NOTE | 2020-09-10 13:40 | PRG ---
DATE OF SERVICE: 09/10/2020 SUBJECTIVE: Patient was seen and examined at bedside and overnight events noted. Patient denies any shortness of breath or chest pain or palpitation. No history of nausea or vomiting or diarrhea or fever or chills or cramps. OBJECTIVE: General: This is well built female in no apparent distress. Vital Signs: Temperature 97. Heart Rate 84. Respiratory rate . Blood pressure 92/53. HEENT: Atraumatic, normocephalic. Oral mucosa is moist. Neck: Supple. Cardiovascular: S1, S2 heard. Rate and rhythm regular. Respiratory: Clear to auscultation. Gastrointestinal: Abdomen is soft. Musculoskeletal: No tenderness. No edema. Dermatologic: No skin rash. Neurologic: Alert and awake and oriented x3. No focal neurologic deficits. Moving all the extremities. Psychiatric: Mood and affect normal. LABORATORY DATA: Potassium 3.5, BUN is 16, creatinine is 4.5. ASSESSMENT AND PLAN: 1. End-stage renal disease. Continue dialysis as tolerated. 2. Hypotension. 3. Edema. 4. History of cirrhosis. 5. Hypoalbuminemia. 6. Anemia of chronic disease. 7. Continue dialysis as tolerated. Job ID: [id number]
[2020-09-11 04:41] LABS: Anion Gap 17 mmol/L (10-20); BUN (Urea Nitrogen) 22 mg/dL (9.8-20.1); Band 2 % (5-11); Calc. Creatinine Clearance 20 mL/min (70-130); Carbon Dioxide 23 mmol/L (22-29); Chloride 95 mmol/L (98-107); Eosinophils 2 % (0-10); Glucose 128 mg/dL (70-105); Hemoglobin 9.7 g/dL (12.0-16.0); Lymphocytes 20 % (21-51); MDiff Complete? YES; Mean Corpuscular HGB CONC 31.5 g/dL (32.0-36.0); Mean Corpuscular Hemoglobin 37.8 pg (27.0-31.0); Mean Platelet Volume 9.8 fL (7.4-10.4); Monocytes 14 % (0-10); Neutrophil 61 % (42-75); Platelet Count 44 thou/uL (130-400); Platelet Morphology Comment Appears Decreased; Potassium 3.4 mmol/L (3.5-5.1); RBC Distribution Width 17.8 % (11.5-14.5); Red Blood Cell (RBC) Count 2.57 mill/uL (4.20-5.40); Sodium 132 mmol/L (136-145); White Blood Cell (WBC) Count 4.4 thou/uL (4.8-10.8)
[2020-09-11] MEDS: Dextrose 5% in Water 1,000 ML IV SCH (05:33)
[2020-09-11] MEDS ORDERED: Potassium Chloride 20 MEQ TAB PO SCH (06:45)
[2020-09-11] MEDS: Midodrine HCl 5 MG TAB PO SCH ×3 (09:02→22:14)
[2020-09-11] MEDS: oxyCODONE 5 MG TAB PO PRN (10:58)
--- NOTE | 2020-09-11 11:09 | PDOC.HOSPP ---
- Subjective Encounter Date: 09/11/20 Subjective: Patient denies SOB or chest pain. She continues to have back pain. She is willing to work with PT. - Objective Vital Signs & Weight: Vital Signs (12 hours) Temp Pulse Resp BP Pulse Ox 09/11/20 11:04 97.5 F L 68 20 84/54 L 98 09/11/20 08:02 97.5 F L 72 16 109/49 L 88 L 09/11/20 03:26 96.1 F L 71 16 101/50 L 96 09/11/20 03:23 94 L 09/10/20 23:30 71 107/58 L Weight Weight 247 lb 6.4 oz I&O: 09/10/20 09/11/20 09/12/20 06:59 06:59 06:59 Intake Total 1393 Balance 1393 Result Diagrams: 09/11/20 04:08 09/11/20 04:08 Hospitalist ROS - Review of Systems Respiratory: denies: shortness of breath Cardiovascular: denies: chest pain - Medication Medications: Active Medications Generic Name Dose Route Start Last Admin Trade Name Freq PRN Reason Stop Dose Admin Hydroxyzine Pamoate 25 mg 09/09/20 22:56 09/09/20 23:50 Hydroxyzine Pamoate 25 Mg Capsule PO 25 mg Q6H PRN Administration Anxiety Dextrose/Water 1,000 mls @ 75 mls/hr 09/10/20 06:00 09/11/20 05:33 D5w IV 1,000 mls .[id number] SANJAY Administration Ceftriaxone Sodium 1 gm/ 100 mls @ 200 mls/hr 09/10/20 14:00 09/10/20 13:28 Sodium Chloride IVPB 100 mls Q24HR SANJAY Administration Lactulose 30 gm 09/10/20 06:00 09/11/20 05:35 Lactulose 20 Gm/30 Ml Udcup PO 30 gm Q8HR SANJAY Administration Midodrine 15 mg 09/10/20 09:00 09/11/20 09:02 Midodrine Hcl 5 Mg Tab PO 15 mg TID SANJAY Administration Oxycodone HCl 5 mg 09/09/20 23:14 09/11/20 10:58 Oxycodone 5 Mg Tab PO 5 mg Q6H PRN Administration Pain Sodium Chloride 10 ml 09/11/20 09:00 09/11/20 09:03 Flush - Normal Saline 10 Ml Syringe IVF 10 ml Q12HR SANJAY Administration Hospitalist Exam Vitals: Vital Signs (12 hours) Temp Pulse Resp BP Pulse Ox 09/11/20 11:04 97.5 F L 68 20 84/54 L 98 09/11/20 08:02 97.5 F L 72 16 109/49 L 88 L 09/11/20 03:26 96.1 F L 71 16 101/50 L 96 09/11/20 03:23 94 L 09/10/20 23:30 71 107/58 L Weight Weight 247 lb 6.4 oz General Appearance: NAD ENT: moist mucosa Neck: supple, no JVD Heart: RRR, no murmur Respiratory: CTAB, no wheezes Gastrointestinal: soft, non-tender, non-distended Extremities: no edema Psychiatric: normal affect Hosp A/P (1) Hypotension Status: Acute Plan: improved with Midodrine Plan: -cont Midodrine (2) Pleural effusion Code(s): J90 - PLEURAL EFFUSION, NOT ELSEWHERE CLASSIFIED Status: Acute Plan: unable to get therapeutic thoracentesis due to thrombocytopenia. Spo2 in the high 90's on 2L NC. Plan: -HD as tolerated -D5 started for low BG the night before now stopped (3) UTI (urinary tract infection) Status: Acute Qualifiers: Urinary tract infection type: acute cystitis Plan: Plan: -f/u urine culture -cont Ceftriaxone (4) End stage renal disease on dialysis Code(s): N18.6 - END STAGE RENAL DISEASE; Z99.2 - DEPENDENCE ON RENAL DIALYSIS Status: Chronic Plan: plan: -nephrology following. appreciate recs (5) Hepatic cirrhosis due to chronic hepatitis C infection Code(s): B18.2 - CHRONIC VIRAL HEPATITIS C; K74.60 - UNSPECIFIED CIRRHOSIS OF LIVER Status: Chronic Plan: -cont Lactulose (6) Chronic back pain Code(s): M54.9 - DORSALGIA, UNSPECIFIED; G89.29 - OTHER CHRONIC PAIN Status: Chronic Plan: Recent lumbar x-ray showed multilevel degenerative changes. Physcial therapy was attempted yesterday but she was not able to do much since her blood pressure dropped with standing. Plan: -cont PT as tolerated (7) Adrenal nodule Code(s): E27.8 - OTHER SPECIFIED DISORDERS OF ADRENAL GLAND Status: Chronic Plan: seen on a CT chest done on this admission. Plan: -will need f/u as outpatient
[2020-09-11] MEDS ORDERED: Dextrose 5% in Water 1,000 ML IV PRN (11:30)
[2020-09-11] MEDS ORDERED: Dextrose 50% Abboject 50 ML SYRINGE SLOW IVP PRN (11:30)
--- NOTE | 2020-09-11 12:06 | PRG ---
DATE OF SERVICE: 09/11/2020 SUBJECTIVE: A 55-year-old female, being seen for end-stage kidney disease. The patient denies any complaints of having nausea, vomiting, or chest pain. PHYSICAL EXAMINATION: GENERAL: The patient is awake and alert. VITAL SIGNS: Reviewed. HEENT: Head normocephalic and atraumatic. Eyes intact, no ulcers. Nose intact, no ulcers. Ears intact, no ulcers. NECK: Supple. No JVD. CHEST: Symmetrical and clear. CARDIOVASCULAR: Shows S1 and S2, no rub, no murmur. GASTROINTESTINAL: Abdomen is soft, bowel sounds positive. EXTREMITIES: Show no edema or ulcers. SKIN: Shows no rash or petechiae. MUSCULOSKELETAL: Shows no joint swelling or stiffness. Genitourinary: Shows no Myrick or CVA tenderness. NEUROLOGIC: Motor intact. Cranial nerves intact. LABORATORY DATA: Hemoglobin 9.7. Creatinine is 5.5 . ASSESSMENT AND PLAN: 1. Chronic kidney disease stage 6, stable. 2. Hypertension, stable. 3. Anemia, stable. Medications based on GFR appropriate. I would recommend discontinuing IV fluids. Job ID: [id number]
[2020-09-11] MEDS: cefTRIAXone\\ROCEPHIN 1 GM in Sodium Chloride 0.9% 100 ML IVPB SCH (15:04)
[2020-09-12 05:24] LABS: #Eosinphils 0.1 thou/uL (0.0-0.7); #Lymphocytes 0.9 thou/uL (1.20-3.40); #Monocytes 0.7 thou/uL (0.11-0.59); #Neutrophils 2.9 thou/uL (1.40-6.50); %Lymphocytes 20.2 % (21.0-51.0); %Monocytes 14.8 % (0.0-10.0); Hemoglobin 9.8 g/dL (12.0-16.0); Mean Corpuscular HGB CONC 32.2 g/dL (32.0-36.0); Mean Corpuscular Hemoglobin 38.2 pg (27.0-31.0); Mean Platelet Volume 9.5 fL (7.4-10.4); Platelet Count 43 thou/uL (130-400); RBC Distribution Width 17.4 % (11.5-14.5); Red Blood Cell (RBC) Count 2.55 mill/uL (4.20-5.40); White Blood Cell (WBC) Count 4.6 thou/uL (4.8-10.8)
[2020-09-12 05:25] LABS: Anion Gap 18 mmol/L (10-20); BUN (Urea Nitrogen) 26 mg/dL (9.8-20.1); Calc. Creatinine Clearance 17 mL/min (70-130); Calcium 10.1 mg/dL (7.8-10.44); Carbon Dioxide 22 mmol/L (22-29); Chloride 96 mmol/L (98-107); Glucose 86 mg/dL (70-105); Potassium 4.2 mmol/L (3.5-5.1); Sodium 132 mmol/L (136-145)
--- NOTE | 2020-09-12 08:47 | PDOC.HOSPP ---
- Subjective Encounter Date: 09/12/20 Subjective: Patient states she is doing better today. Maih chest pain, SOB or back pain. - Objective Vital Signs & Weight: Vital Signs (12 hours) Temp Pulse Resp BP Pulse Ox 09/12/20 07:40 93 L 09/12/20 07:35 97.6 F 82 20 112/71 93 L 09/12/20 04:00 98.6 F 83 18 102/51 L Weight Admit Weight 247 lb 6.4 oz Weight 244 lb I&O: 09/11/20 09/12/20 09/13/20 06:59 06:59 06:59 Intake Total 1393 Balance 1393 Result Diagrams: 09/12/20 04:35 09/12/20 04:35 Additional Labs: Accuchecks 09/12/20 09/11/20 09/11/20 06:38 21:03 16:20 POC Glucose 76 99 103 H 09/11/20 09/11/20 09/11/20 14:11 13:00 12:00 POC Glucose 103 H 114 H 105 H Hospitalist ROS - Review of Systems Respiratory: denies: shortness of breath Cardiovascular: denies: chest pain Gastrointestinal: denies: nausea, vomiting - Medication Medications: Active Medications Generic Name Dose Route Start Last Admin Trade Name Freq PRN Reason Stop Dose Admin Hydroxyzine Pamoate 25 mg 09/09/20 22:56 09/09/20 23:50 Hydroxyzine Pamoate 25 Mg Capsule PO 25 mg Q6H PRN Administration Anxiety Lactulose 30 gm 09/10/20 06:00 09/12/20 04:58 Lactulose 20 Gm/30 Ml Udcup PO Not Given Q8HR SANJAY Midodrine 15 mg 09/10/20 09:00 09/11/20 22:14 Midodrine Hcl 5 Mg Tab PO 15 mg TID SANJAY Administration Oxycodone HCl 5 mg 09/09/20 23:14 09/11/20 10:58 Oxycodone 5 Mg Tab PO 5 mg Q6H PRN Administration Pain Sodium Chloride 10 ml 09/11/20 09:00 09/11/20 22:15 Flush - Normal Saline 10 Ml Syringe IVF 10 ml Q12HR SANJAY Administration Hospitalist Exam Vitals: Vital Signs (12 hours) Temp Pulse Resp BP Pulse Ox 09/12/20 07:40 93 L 09/12/20 07:35 97.6 F 82 20 112/71 93 L 09/12/20 04:00 98.6 F 83 18 102/51 L Weight Admit Weight 247 lb 6.4 oz Weight 244 lb General Appearance: NAD, awake alert Eye: scleral icterus ENT: moist mucosa Neck: supple, no JVD Heart: RRR, no murmur Respiratory: CTAB, no tachypnea Gastrointestinal: soft, non-tender, non-distended Extremities: no edema Psychiatric: A&O x 3 Hosp A/P (1) Hypotension Status: Acute Plan: improved with Midodrine. Plan; -will monitor BP after her HD today -cont Midodrine (2) Pleural effusion Code(s): J90 - PLEURAL EFFUSION, NOT ELSEWHERE CLASSIFIED Status: Acute Plan: Spo2 in the low 90's on 2.5 L NC O2 supplement. Per nurse, states, patient uses O2 supplement at home. Therapeutic thoracentesis was not done due to thrombocytopenia. Plan; -will have HD today -O2 supplement prn (3) UTI (urinary tract infection) Status: Acute Qualifiers: Urinary tract infection type: acute cystitis Plan: Urine culture grew yeast. Plan; -stop Ceftriaxone (4) End stage renal disease on dialysis Code(s): N18.6 - END STAGE RENAL DISEASE; Z99.2 - DEPENDENCE ON RENAL DIALYSIS Status: Chronic Plan: Plan; -HD scheduled for today -Nephrology following. Appreciate recs (5) Hepatic cirrhosis due to chronic hepatitis C infection Code(s): B18.2 - CHRONIC VIRAL HEPATITIS C; K74.60 - UNSPECIFIED CIRRHOSIS OF LIVER Status: Chronic Plan: Plan; -cont Lactulose (6) Chronic back pain Code(s): M54.9 - DORSALGIA, UNSPECIFIED; G89.29 - OTHER CHRONIC PAIN Status: Chronic Plan: recent lumbar x-ray showed multilevel degenerative changes. Her back pain is better today. Plan; -will reattempt PT today (7) Adrenal nodule Code(s): E27.8 - OTHER SPECIFIED DISORDERS OF ADRENAL GLAND Status: Chronic Plan: seen on CT chest. Plan; -will need F/u imaging outpatient
[2020-09-12] MEDS ORDERED: Heparin 10,000 UNITS/ 10 ML VIAL ONE (10:54)
--- NOTE | 2020-09-12 11:24 | PRG ---
DATE OF SERVICE: 09/12/2020 SUBJECTIVE: A 55-year-old female being seen for end-stage renal disease. The patient denied any nausea, vomiting, or chest pain. OBJECTIVE: GENERAL: The patient is awake and alert. VITAL SIGNS: Afebrile, pulse 93, breathing at 16, blood pressure 112/71. HEENT: Head normocephalic and atraumatic. Eyes intact, no ulcers. Nose intact, no ulcers. Ears intact, no ulcers. NECK: Supple. No JVD. CHEST: Symmetrical and clear. CARDIOVASCULAR: Shows S1 and S2, no rub, no murmur. GASTROINTESTINAL: Abdomen is soft, bowel sounds positive. EXTREMITIES: Show no edema or ulcers. SKIN: Shows no rash or petechiae. MUSCULOSKELETAL: Shows no joint swelling or stiffness. GENITOURINARY: Shows no Myrick or CVA tenderness. NEUROLOGIC: Motor intact. Cranial nerves intact. LABORATORY DATA: Labs reviewed. ASSESSMENT AND PLAN: 1. Stage 6 chronic kidney disease, plan dialysis. 2. Hypertension, stable. 3. Anemia, stable. 4. Medication based on GFR appropriate. Job ID: [id number]
[2020-09-12] MEDS: Midodrine HCl 5 MG TAB PO SCH ×3 (12:16→21:34)
[2020-09-12] MEDS: oxyCODONE 5 MG TAB PO PRN ×2 (13:38→21:34)
[2020-09-13 04:42] LABS: Anion Gap 16 mmol/L (10-20); BUN (Urea Nitrogen) 17 mg/dL (9.8-20.1); Calc. Creatinine Clearance 23 mL/min (70-130); Calcium 9.3 mg/dL (7.8-10.44); Carbon Dioxide 24 mmol/L (22-29); Chloride 95 mmol/L (98-107); Glucose 97 mg/dL (70-105); Potassium 3.4 mmol/L (3.5-5.1); Sodium 132 mmol/L (136-145)
[2020-09-13] MEDS ORDERED: Potassium Chloride 20 MEQ TAB PO SCH (07:00)
[2020-09-13] MEDS ORDERED: Magnesium Oxide 400 MG TAB PO SCH (07:00)
[2020-09-13] MEDS: oxyCODONE 5 MG TAB PO PRN ×2 (07:30→21:11)
[2020-09-13] MEDS: hydrOXYzine Pamoate 25 mg Capsule PO PRN (07:31)
[2020-09-13] MEDS: Midodrine HCl 5 MG TAB PO SCH ×3 (08:49→21:11)
--- NOTE | 2020-09-13 10:04 | PRG ---
DATE OF SERVICE: 09/13/2020 SUBJECTIVE: A 55-year-old female, being seen for end-stage renal disease. The patient denied nausea, vomiting, or chest pain. OBJECTIVE: General: The patient is awake and alert. Vital Signs: Afebrile, pulse 97, breathing at 16, blood pressure 155/55. HEENT: Head normocephalic and atraumatic. Eyes intact, no ulcers. Nose intact, no ulcers. Ears intact, no ulcers. Neck: Supple. No JVD. Chest: Symmetrical and clear. Cardiovascular: Shows S1 and S2, no rub, no murmur. Gastrointestinal: Abdomen is soft, bowel sounds positive. Extremities: Show no edema or ulcers. Skin: Shows no rash or petechiae. Musculoskeletal: Shows no joint swelling or stiffness. Genitourinary: Shows no Myrick or CVA tenderness. Neurologic: Motor intact. Cranial nerves intact. LABORATORY DATA: Labs reviewed. ASSESSMENT AND PLAN: Stage 6 chronic kidney disease, stable. Hypertension, stable. Anemia, stable. Hypokalemia, recommend p.o. potassium replacement. Congestive heart failure. Overall prognosis is poor. Job ID: [id number]
--- NOTE | 2020-09-13 17:33 | PDOC.HOSPP ---
- Subjective Encounter Date: 09/13/20 Subjective: Patient denies SOB, or chest pain. No back pain currently. PT recommended rehab vs SNF placement - Objective Vital Signs & Weight: Vital Signs (12 hours) Temp Pulse Pulse Pulse Pulse Resp BP 09/13/20 16:01 97.8 F 89 20 09/13/20 11:39 97.8 F 88 20 09/13/20 10:33 98 92 89 107/90 09/13/20 07:50 09/13/20 07:44 97.6 F 82 20 BP BP BP Pulse Ox 09/13/20 16:01 85/52 L 90 L 09/13/20 11:39 97/57 L 95 09/13/20 10:33 136/69 109/70 09/13/20 07:50 96 09/13/20 07:44 90/52 L 96 Weight Admit Weight 247 lb 6.4 oz Weight 244 lb I&O: 09/12/20 09/13/20 09/14/20 06:59 06:59 06:59 Intake Total 600 837 Output Total 900 Balance -300 837 Result Diagrams: 09/12/20 04:35 09/13/20 04:06 Additional Labs: Accuchecks 09/13/20 09/13/20 09/12/20 16:01 10:35 20:29 POC Glucose 172 H 141 H 102 H Hospitalist ROS - Review of Systems Respiratory: denies: shortness of breath Cardiovascular: denies: chest pain - Medication Medications: Active Medications Generic Name Dose Route Start Last Admin Trade Name Freq PRN Reason Stop Dose Admin Hydroxyzine Pamoate 25 mg 09/09/20 22:56 09/13/20 07:31 Hydroxyzine Pamoate 25 Mg Capsule PO 25 mg Q6H PRN Administration Anxiety Lactulose 30 gm 09/10/20 06:00 09/13/20 14:55 Lactulose 20 Gm/30 Ml Udcup PO Not Given Q8HR SANJAY Midodrine 15 mg 09/10/20 09:00 09/13/20 14:55 Midodrine Hcl 5 Mg Tab PO 15 mg TID SANJAY Administration Ondansetron HCl 4 mg 09/09/20 16:04 09/13/20 08:47 Ondansetron Pf 4 Mg/2 Ml Vial IVP 4 mg Q6H PRN Administration Nausea/Vomiting Oxycodone HCl 5 mg 09/09/20 23:14 09/13/20 07:30 Oxycodone 5 Mg Tab PO 5 mg Q6H PRN Administration Pain Sodium Chloride 10 ml 09/11/20 09:00 09/13/20 08:49 Flush - Normal Saline 10 Ml Syringe IVF 10 ml Q12HR SANJAY Administration Hospitalist Exam Vitals: Vital Signs (12 hours) Temp Pulse Pulse Pulse Pulse Resp BP 09/13/20 16:01 97.8 F 89 20 09/13/20 11:39 97.8 F 88 20 09/13/20 10:33 98 92 89 107/90 09/13/20 07:50 09/13/20 07:44 97.6 F 82 20 BP BP BP Pulse Ox 09/13/20 16:01 85/52 L 90 L 09/13/20 11:39 97/57 L 95 09/13/20 10:33 136/69 109/70 09/13/20 07:50 96 09/13/20 07:44 90/52 L 96 Weight Admit Weight 247 lb 6.4 oz Weight 244 lb General Appearance: NAD, awake alert ENT: moist mucosa Neck: no JVD Heart: RRR, no murmur Respiratory: CTAB, no wheezes, no tachypnea Gastrointestinal: soft, non-tender, non-distended, normal bowel sounds Extremities - other findings: trace edema on the LE bilaterally Psychiatric: normal affect Hosp A/P (1) Hypotension Status: Acute Plan: Improved significantly with midodrine Plan: -Continue midodrine -Patient is pending placement to rehab or SNF per PT recommendation (2) Pleural effusion Code(s): J90 - PLEURAL EFFUSION, NOT ELSEWHERE CLASSIFIED Status: Acute Plan: O2 sat in the low-mid 90's on RA. She had HD yesterday. Plan: -monitor (3) End stage renal disease on dialysis Code(s): N18.6 - END STAGE RENAL DISEASE; Z99.2 - DEPENDENCE ON RENAL DIALYSIS Status: Chronic (4) Hepatic cirrhosis due to chronic hepatitis C infection Code(s): B18.2 - CHRONIC VIRAL HEPATITIS C; K74.60 - UNSPECIFIED CIRRHOSIS OF LIVER Status: Chronic Plan: Plan: -cont Lactulous (5) Chronic back pain Code(s): M54.9 - DORSALGIA, UNSPECIFIED; G89.29 - OTHER CHRONIC PAIN Status: C hronic Plan: Plan: -PT recommended rehab vs SNF placement. Pending placement (6) Adrenal nodule Code(s): E27.8 - OTHER SPECIFIED DISORDERS OF ADRENAL GLAND Status: Chronic Plan: Plan: -will need f/u as outpatient
[2020-09-14 08:24] LABS: Anion Gap 22 mmol/L (10-20); BUN (Urea Nitrogen) 22 mg/dL (9.8-20.1); Calc. Creatinine Clearance 18 mL/min (70-130); Calcium 9.7 mg/dL (7.8-10.44); Carbon Dioxide 17 mmol/L (22-29); Chloride 99 mmol/L (98-107); Glucose 111 mg/dL (70-105); Potassium 4.7 mmol/L (3.5-5.1); Sodium 133 mmol/L (136-145)
[2020-09-14] MEDS ORDERED: Heparin 10,000 UNITS/ 10 ML VIAL ONE (10:26)
--- NOTE | 2020-09-14 10:31 | PDOC.HOSPP ---
- Subjective Encounter Date: 09/14/20 Subjective: Patient denies SOB or chest pain. No back pain at this time. Patient is pending placement to rehab or SNF. - Objective Vital Signs & Weight: Vital Signs (12 hours) Temp Pulse Resp BP Pulse Ox 09/14/20 07:50 92 L 09/14/20 07:28 97.8 F 82 20 100/54 L 92 L 09/14/20 03:32 98.4 F 79 98/55 L 92 L 09/14/20 00:00 80 114/54 L 93 L Weight Admit Weight 247 lb 6.4 oz Weight 244 lb I&O: 09/13/20 09/14/20 09/15/20 06:59 06:59 06:59 Intake Total 600 1137 Output Total 900 Balance -300 1137 Result Diagrams: 09/12/20 04:35 09/14/20 07:57 Additional Labs: Accuchecks 09/14/20 09/13/20 09/13/20 06:22 20:49 16:01 POC Glucose 113 H 147 H 172 H 09/13/20 09/13/20 10:35 08:54 POC Glucose 141 H 104 H Hospitalist ROS - Review of Systems Respiratory: denies: shortness of breath Cardiovascular: denies: chest pain Gastrointestinal: denies: nausea, vomiting Musculoskeletal: denies: back pain - Medication Medications: Active Medications Generic Name Dose Route Start Last Admin Trade Name Freq PRN Reason Stop Dose Admin Hydroxyzine Pamoate 25 mg 09/09/20 22:56 09/13/20 07:31 Hydroxyzine Pamoate 25 Mg Capsule PO 25 mg Q6H PRN Administration Anxiety Lactulose 30 gm 09/10/20 06:00 09/14/20 06:27 Lactulose 20 Gm/30 Ml Udcup PO 30 gm Q8HR SANJAY Administration Midodrine 15 mg 09/10/20 09:00 09/13/20 21:11 Midodrine Hcl 5 Mg Tab PO 15 mg TID SANJAY Administration Ondansetron HCl 4 mg 09/09/20 16:04 09/13/20 08:47 Ondansetron Pf 4 Mg/2 Ml Vial IVP 4 mg Q6H PRN Administration Nausea/Vomiting Oxycodone HCl 5 mg 09/09/20 23:14 09/13/20 21:11 Oxycodone 5 Mg Tab PO 5 mg Q6H PRN Administration Pain Sodium Chloride 10 ml 09/11/20 09:00 09/13/20 21:12 Flush - Normal Saline 10 Ml Syringe IVF 10 ml Q12HR SANJAY Administration Hospitalist Exam Vitals: Vital Signs (12 hours) Temp Pulse Resp BP Pulse Ox 09/14/20 07:50 92 L 09/14/20 07:28 97.8 F 82 20 100/54 L 92 L 09/14/20 03:32 98.4 F 79 98/55 L 92 L 09/14/20 00:00 80 114/54 L 93 L Weight Admit Weight 247 lb 6.4 oz Weight 244 lb General Appearance: NAD, awake alert ENT: moist mucosa Heart: RRR, no murmur Respiratory: CTAB, no wheezes, no tachypnea Gastrointestinal: soft, non-tender, non-distended Extremities: no edema Psychiatric: normal affect Hosp A/P (1) Hypotension Status: Acute Plan: improved with Midodrine. Plan: -continue Midodrine -Patient is pending placement to SNF vs Rehab (2) Pleural effusion Code(s): J90 - PLEURAL EFFUSION, NOT ELSEWHERE CLASSIFIED Status: Chronic Plan: no respiratory distress. Plan: -O2 supplement prn -nephrology following for HD (3) End stage renal disease on dialysis Code(s): N18.6 - END STAGE RENAL DISEASE; Z99.2 - DEPENDENCE ON RENAL DIALYSIS Status: Chronic Plan: Plan: -nephrology following for HD (4) Hepatic cirrhosis due to chronic hepatitis C infection Code(s): B18.2 - CHRONIC VIRAL HEPATITIS C; K74.60 - UNSPECIFIED CIRRHOSIS OF LIVER Status: Chronic (5) Chronic back pain Code(s): M54.9 - DORSALGIA, UNSPECIFIED; G89.29 - OTHER CHRONIC PAIN Status: Chronic Plan: recent Lumbar spine showed multilevel degenerative changes. Plan: -PT recommended rehab vs SNF. Patient is pending placement (6) Adrenal nodule Code(s): E27.8 - OTHER SPECIFIED DISORDERS OF ADRENAL GLAND Status: Chronic Plan: seen on CTA chest. Plan: -will need outpatient follow up
--- NOTE | 2020-09-14 11:53 | PRG ---
DATE OF SERVICE: 09/14/2020 SUBJECTIVE: A 55-year-old female being seen for end-stage renal disease. The patient denied nausea, vomiting, or chest pain. OBJECTIVE: GENERAL: On exam, the patient is awake and alert. VITAL SIGNS: Afebrile, pulse 82, breathing at 16, and blood pressure 100/54. HEENT: Head normocephalic and atraumatic. Eyes intact, no ulcers. Nose intact, no ulcers. Ears intact, no ulcers. NECK: Supple. No JVD. CHEST: Symmetrical and clear. CARDIOVASCULAR: Shows S1 and S2, no rub, no murmur. GASTROINTESTINAL: Abdomen is soft, bowel sounds positive. EXTREMITIES: Show no edema or ulcers. SKIN: Shows no rash or petechiae. MUSCULOSKELETAL: Shows no joint swelling or stiffness. GENITOURINARY: Shows no Myrick or CVA tenderness. NEUROLOGIC: Motor intact. Cranial nerves intact. LABORATORY DATA: Reviewed. ASSESSMENT AND PLAN: 1. Stage 6 chronic kidney disease, plan dialysis. 2. Hypertension, stable. 3. Anemia, stable. Job ID: [id number]
[2020-09-14] MEDS: Midodrine HCl 5 MG TAB PO SCH ×3 (12:53→20:55)
[2020-09-15] MEDS: Midodrine HCl 5 MG TAB PO SCH ×3 (09:53→21:05)
--- NOTE | 2020-09-15 10:44 | PRG ---
DATE OF SERVICE: 09/15/2020 SUBJECTIVE: This is a 55-year-old lady being seen for end-stage renal disease. The patient denied nausea, vomiting, or chest pain. OBJECTIVE: General: The patient is awake and alert. Vital Signs: Afebrile, pulse 75, breathing at 16, blood pressure 103/67. HEENT: Head normocephalic and atraumatic. Eyes intact, no ulcers. Nose intact, no ulcers. Ears intact, no ulcers. Neck: Supple. No JVD. Chest: Symmetrical and clear. Cardiovascular: Shows S1 and S2, no rub, no murmur. Gastrointestinal: Abdomen is soft, bowel sounds positive. Extremities: Show no edema or ulcers. Skin: Shows no rash or petechiae. Musculoskeletal: Shows no joint swelling or stiffness. Genitourinary: Shows no Myrick or CVA tenderness. Neurologic: Motor intact. Cranial nerves intact. LABORATORY DATA: Labs reviewed. Hemoglobin 9.8. ASSESSMENT AND PLAN: Stage 6 chronic kidney disease, stable. Hypertension, stable. Anemia, stable. Medication based on GFR appropriate. Job ID: [id number]
--- NOTE | 2020-09-15 11:44 | PDOC.HOSPP ---
- Subjective Encounter Date: 09/15/20 Subjective: Patient states she gets out of breath if she does not use oxygen. She denies chest pain. - Objective Vital Signs & Weight: Vital Signs (12 hours) Temp Pulse Resp BP Pulse Ox 09/15/20 08:00 97.8 F 77 18 103/67 94 L 09/15/20 04:53 99 09/15/20 03:10 97.8 F 75 18 108/60 93 L Weight Admit Weight 247 lb 6.4 oz Weight 240 lb 1.334 oz I&O: 09/14/20 09/15/20 09/16/20 06:59 06:59 06:59 Intake Total 1137 840 Balance 1137 840 Result Diagrams: 09/12/20 04:35 09/14/20 07:57 Additional Labs: Accuchecks 09/15/20 09/15/20 09/14/20 11:17 06:13 20:31 POC Glucose 110 H 89 121 H 09/14/20 16:55 POC Glucose 122 H Hospitalist ROS - Review of Systems Respiratory: reports: shortness of breath Cardiovascular: denies: chest pain - Medication Medications: Active Medications Generic Name Dose Route Start Last Admin Trade Name Freq PRN Reason Stop Dose Admin Hydroxyzine Pamoate 25 mg 09/09/20 22:56 09/13/20 07:31 Hydroxyzine Pamoate 25 Mg Capsule PO 25 mg Q6H PRN Administration Anxiety Lactulose 30 gm 09/10/20 06:00 09/15/20 05:45 Lactulose 20 Gm/30 Ml Udcup PO 30 gm Q8HR SANJAY Administration Midodrine 15 mg 09/10/20 09:00 09/15/20 09:53 Midodrine Hcl 5 Mg Tab PO 15 mg TID SANJAY Administration Ondansetron HCl 4 mg 09/09/20 16:04 09/13/20 08:47 Ondansetron Pf 4 Mg/2 Ml Vial IVP 4 mg Q6H PRN Administration Nausea/Vomiting Oxycodone HCl 5 mg 09/09/20 23:14 09/13/20 21:11 Oxycodone 5 Mg Tab PO 5 mg Q6H PRN Administration Pain Sodium Chloride 10 ml 09/11/20 09:00 09/15/20 09:55 Flush - Normal Saline 10 Ml Syringe IVF 10 ml Q12HR SANJAY Administration Hospitalist Exam Vitals: Vital Signs (12 hours) Temp Pulse Resp BP Pulse Ox 09/15/20 08:00 97.8 F 77 18 103/67 94 L 09/15/20 04:53 99 09/15/20 03:10 97.8 F 75 18 108/60 93 L Weight Admit Weight 247 lb 6.4 oz Weight 240 lb 1.334 oz General Appearance: NAD, awake alert Eye: scleral icterus ENT: moist mucosa Heart: RRR, no murmur Respiratory: no wheezes Respiratory - other findings: crackles on the right lower lobe otherwise CTAB Gastrointestinal: soft, non-tender, non-distended Extremities: 1+ LE edema (bilaterally) Psychiatric: normal affect Hosp A/P (1) Pleural effusion Code(s): J90 - PLEURAL EFFUSION, NOT ELSEWHERE CLASSIFIED Status: Chronic Plan: No therapeutic thoracentesis was done due to thrombocytopenia. Spo2 in the high 80's with exertion. Plan: -O2 supplement as needed. Patient was suppose to be discharged today but this was held due to delay of home O2 tank delivery. -HD as scheduled (2) Chronic heart failure with preserved ejection fraction (HFpEF) Code(s): I50.32 - CHRONIC DIASTOLIC (CONGESTIVE) HEART FAILURE Status: Chronic Plan: Echo done on this admission showed EF: 50-55%. Plan: -HD as scheduled -O2 supplement prn (3) Hypotension Status: Acute Plan: improved with Midodrine. Plan: -continue Midodrine. (4) End stage renal disease on dialysis Code(s): N18.6 - END STAGE RENAL DISEASE; Z99.2 - DEPENDENCE ON RENAL DIALYSIS Status: Chronic Plan: Had HD yesterday. Plan: -nephrology following to assist with HD. (5) Hepatic cirrhosis due to chronic hepatitis C infection Code(s): B18.2 - CHRONIC VIRAL HEPATITIS C; K74.60 - UNSPECIFIED CIRRHOSIS OF LIVER Status: Chronic Plan: Plan: -cont Lactulose (6) Chronic back pain Code(s): M54.9 - DORSALGIA, UNSPECIFIED; G89.29 - OTHER CHRONIC PAIN Status: Chronic Plan: multilevel degenerative changes seen on recent lumbar x-ray. Plan: -approved for 2 weeks of home physical therapy -cont PT (7) Adrenal nodule Code(s): E27.8 - OTHER SPECIFIED DISORDERS OF ADRENAL GLAND Status: Chronic Plan: seen on CTA chest. Non-emergent F/u CT A/P recommended. PLan: -discussed case with patient's daughter and the need for f/u once patient establish care with PCP. - Plan seen on CTA chest. Plan: -will need f/u CT A/P outpatient
[2020-09-15 12:40] VITALS: BMI 36.5
--- NOTE | 2020-09-15 17:29 | PDOC.DS.DS ---
Provider Date of Admission: 09/09/20 14:58 Admitting Provider: Jodi Shelton MD Primary Care Physician: Jluis Snider MD Course Lab Results: 09/12/20 04:35 09/14/20 07:57 Abnormal Lab Results - Last 48 hrs 09/14/20 07:57: Sodium 133 L, Carbon Dioxide 17 L, Anion Gap 22 H, BUN 22 H, Creatinine 6.02 H Microbiology - Entire Visit 09/09/20 12:03 Urine Straight Catheter Urine Culture - Final Presumptive Lucina albicans Presumptive Lucina Krusei Vitals: Vital Signs (12 hours) Temp Pulse Resp BP Pulse Ox 09/15/20 16:00 98.4 F 76 16 102/65 09/15/20 08:00 97.8 F 77 18 103/67 94 L Weight Admit Weight 247 lb 6.4 oz Weight 240 lb 1.334 oz Physical Exam: The patient was seen and examined on the day of discharge. Problem (1) Pleural effusion Code(s): J90 - PLEURAL EFFUSION, NOT ELSEWHERE CLASSIFIED Status: Chronic (2) Chronic heart failure with preserved ejection fraction (HFpEF) Code(s): I50.32 - CHRONIC DIASTOLIC (CONGESTIVE) HEART FAILURE Status: Chronic (3) Hypotension Status: Acute (4) End stage renal disease on dialysis Code(s): N18.6 - END STAGE RENAL DISEASE; Z99.2 - DEPENDENCE ON RENAL DIALYSIS Status: Chronic (5) Hepatic cirrhosis due to chronic hepatitis C infection Code(s): B18.2 - CHRONIC VIRAL HEPATITIS C; K74.60 - UNSPECIFIED CIRRHOSIS OF LIVER Status: Chronic (6) Chronic back pain Code(s): M54.9 - DORSALGIA, UNSPECIFIED; G89.29 - OTHER CHRONIC PAIN Status: Chronic (7) Adrenal nodule Code(s): E27.8 - OTHER SPECIFIED DISORDERS OF ADRENAL GLAND Status: Chronic Plan Home Medications: Medication Instructions Recorded Confirmed Type Furosemide 40 mg PO DAILY 08/24/20 09/09/20 History Gabapentin 100 mg PO TID 08/24/20 09/09/20 History Lactulose 30 ml PO BID 08/24/20 09/09/20 History Midodrine HCl 15 mg PO TID 08/24/20 09/09/20 History hydrOXYzine Pamoate [Hydroxyzine 25 mg PO Q6H PRN 08/24/20 09/09/20 History Pamoate] oxyCODONE HCl [Oxycodone HCl] 5 mg PO Q6H PRN 08/24/20 09/09/20 History Allergies: promethazine [From Phenergan] Allergy (Verified 09/09/20 22:40) Activity:: Activity as Tolerated Nourishment:: Renal Diet Therapies:: Home Health Equipment/Supplies:: Oxygen Referrals: [facility] [Outside] (Home oxygen for one month.) [facility] [Outside] (Approved for two weeks of nursing (two visits) and physical therapy (two visits).) Jluis Snider MD [Primary Care Provider] - (Follow up with Dr. Snider as discussed. Resume your previous dialysis schedule. ) Disposition: HOME HEALTH
[2020-09-16] MEDS ORDERED: Midodrine HCl 5 MG TAB PO SCH (09:45)
[2020-09-16] MEDS ORDERED: Heparin 10,000 UNITS/ 10 ML VIAL ONE (11:12)
[2020-09-16] MEDS: Midodrine HCl 5 MG TAB PO SCH ×2 (14:17→14:20)
--- NOTE | 2020-09-16 14:57 | PDOC.DS.DS ---
Provider Date of Admission: 09/09/20 14:58 Admitting Provider: Jodi Shelton MD Consultations: Nephrology Primary Care Physician: Jluis Snider MD Course Hospital Course: Patient is a pleasant 55 years ago female who has significant past medical histories of ESRD on dialysis, Friday//Friday, hepatitis C complicated with liver cirrhosis, degenerative joint disease, who presented to ED with complaint of short of breath. Patient apparently missed dialysis 2 days ago prior to admission due to inclement of weather. She developed worsening short of breath with intermittent cough. For that reason she came to the ED for further evaluation. Initial work-up in the ED including CTA chest, showed large left pleural effusion. Nephrology was consulted to assist with dialysis. She was not a candidate for thoracocentesis given her underlying thrombocytopenia from her chronic liver disease. Patient also has some intermittent hypotension, but improved with Midrin. She has been tolerating her dialysis well. Given her for persistent hypoxia, CTA was negative for PE, likely due to her pleural effusion. Patient qualified for home O2. She will be discharged with home oxygen. Patient was recommended to be compliant with her dialysis. At this time her home oxygen has been arranged. Patient stable to discharge home, follow-up with nephrology for ongoing dialysis care. Pertinent Studies: 2D echo: EF estimate 50-55%. Moderately enlarged right ventricle cavity. Left atria mildly enlarged. Moderately enlarged right atrium size. Mild to moderate tricuspid regurg CTA chest: Large left layering pleural effusions involving approximately 70% of the hemithorax volume. Compressive atelectasis within the left lower lobe and lingula. Few groundglass opacity within the right upper lobe may reflect infection/aspiration. Cardiomegaly with left ventricular apical thinning likely sequelae as of prior to infarction. Marked distention of inferior vena cava likely due to increased right heart pressure. Lab Results: 09/12/20 04:35 09/14/20 07:57 Microbiology - Entire Visit 09/09/20 12:03 Urine Straight Catheter Urine Culture - Final Presumptive Lucina albicans Presumptive Lucina Krusei Vitals: Vital Signs (12 hours) Temp Pulse Resp BP Pulse Ox 09/16/20 14:10 98.0 F 85 16 93/58 L 96 09/16/20 08:00 98.0 F 76 16 106/59 L 97 09/16/20 03:37 95 09/16/20 03:10 98.6 F 74 18 98/58 L 95 Weight Admit Weight 247 lb 6.4 oz Weight 240 lb 1.334 oz Physical Exam: The patient was seen and examined on the day of discharge. General Appearance: NAD Eye: PERRL ENT: normocephalic atraumatic Neck: supple Respiratory: CTAB Cardiovascular: RRR, no murmur Gastrointestinal: soft, non-tender Extremities: no cyanosis, no clubbing Skin: normal turgor Neurological: cranial nerve grossly intact Musculoskeletal: normal tone, normal strength PSYCH: normal affect, normal behavior, A&O x 3 Problem Time Spent in discharge related activities (mins): 35 (1) Hypotension Status: Acute (2) UTI (urinary tract infection) Status: Acute Qualifiers: Urinary tract infection type: acute cystitis (3) Volume overload Code(s): E87.70 - FLUID OVERLOAD, UNSPECIFIED Status: Acute (4) Adrenal nodule Code(s): E27.8 - OTHER SPECIFIED DISORDERS OF ADRENAL GLAND Status: Chronic (5) Chronic back pain Code(s): M54.9 - DORSALGIA, UNSPECIFIED; G89.29 - OTHER CHRONIC PAIN Status: Chronic (6) Chronic heart failure with preserved ejection fraction (HFpEF) Code(s): I50.32 - CHRONIC DIASTOLIC (CONGESTIVE) HEART FAILURE Status: Chronic (7) Hepatic cirrhosis due to chronic hepatitis C infection Code(s): B18.2 - CHRONIC VIRAL HEPATITIS C; K74.60 - UNSPECIFIED CIRRHOSIS OF LIVER Status: Chronic (8) Pleural effusion Code(s): J90 - PLEURAL EFFUSION, NOT ELSEWHERE CLASSIFIED Status: Chronic Plan Prescriptions: Lactulose 30 gm PO Q8HR #90 udcup Midodrine HCl 15 mg PO TID #120 tablet Home Medications: Medication Instructions Recorded Confirmed Type Furosemide 40 mg PO DAILY 08/24/20 09/09/20 History Gabapentin 100 mg PO TID 08/24/20 09/09/20 History Lactulose 30 ml PO BID 08/24/20 09/09/20 History hydrOXYzine Pamoate [Hydroxyzine 25 mg PO Q6H PRN 08/24/20 09/09/20 History Pamoate] oxyCODONE HCl [Oxycodone HCl] 5 mg PO Q6H PRN 08/24/20 09/09/20 History Lactulose 30 gm PO Q8HR #90 udcup 09/15/20 Rx Midodrine HCl 15 mg PO TID #120 tablet 09/15/20 Rx Allergies: promethazine [From Phenergan] Allergy (Verified 09/09/20 22:40) Activity:: Activity as Tolerated Nourishment:: Renal Diet Therapies:: Home Health Equipment/Supplies:: Oxygen Referrals: [facility] [Outside] (Home oxygen for one month.) [facility] [Outside] (Approved for two weeks of nursing (two visits) and physical therapy (two visits).) Jluis Snider MD [Primary Care Provider] - (Follow up with Dr. Snider as discussed. Resume your previous dialysis schedule. ) Disposition: HOME HEALTH Quality CORE MEASURES:: N/A
[2020-09-16] MEDS: oxyCODONE 5 MG TAB PO PRN (16:04)
[2020-09-16 16:28] VITALS: BP 103/58; TEMP 97.9
--- NOTE | 2020-09-17 07:13 | PRG ---
DATE OF SERVICE: 09/16/2020 SUBJECTIVE: A 55-year-old female being seen for end-stage renal disease. The patient denied nausea, vomiting, or chest pain. OBJECTIVE: GENERAL: The patient is awake, alert. VITAL SIGNS: Afebrile. Pulse 75, breathing 16, blood pressure 120/73. HEENT: Head normocephalic and atraumatic. Eyes intact, no ulcers. Nose intact, no ulcers. Ears intact, no ulcers. NECK: Supple. No JVD. CHEST: Symmetrical and clear. CARDIOVASCULAR: Shows S1 and S2, no rub, no murmur. GASTROINTESTINAL: Abdomen is soft, bowel sounds positive. EXTREMITIES: Show no edema or ulcers. SKIN: Shows no rash or petechiae. MUSCULOSKELETAL: Shows no joint swelling or stiffness. GENITOURINARY: Shows no Myrick or CVA tenderness. NEUROLOGIC: Motor intact. Cranial nerves intact. LABORATORY DATA: Reviewed. ASSESSMENT AND PLAN: 1. Stage 6 chronic kidney disease. Continue peritoneal dialysis. 2. Hypertension, stable. 3. Anemia, stable. 4. Medication based on GFR appropriate. 5. The patient has chronic hypotension, so we will continue midodrine. 6. 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 Job ID: [id number]
== END 2020-09-16 16:30 | disposition home health service (06) | DRG 640 ==
LOC: ERS 10:52 → ERHOLD 14:58 → 2NO 18:47
PROVIDERS: ADMIT Internal Medicine; ATTEND Family Medicine
PROC: 5A1D70Z Performance of Urinary Filtration, Intermittent, Less than 6 Hours Per Day (ICD-10-PCS; principal; 2020-09-09)
DX: E87.70 Fluid overload, unspecified (principal); N18.6 End stage renal disease; J90 Pleural effusion, not elsewhere classified; I50.32 Chronic diastolic (congestive) heart failure; I13.2 Hypertensive heart and chronic kidney disease with heart failure and with stage 5 chronic kidney disease, or end stage renal disease; N30.00 Acute cystitis without hematuria; Z20.822 Contact with and (suspected) exposure to COVID-19; B18.2 Chronic viral hepatitis C; K74.60 Unspecified cirrhosis of liver; M19.90 Unspecified osteoarthritis, unspecified site; D69.6 Thrombocytopenia, unspecified; E27.8 Other specified disorders of adrenal gland; M54.9 Dorsalgia, unspecified; D63.1 Anemia in chronic kidney disease; E88.09 Other disorders of plasma-protein metabolism, not elsewhere classified; I95.9 Hypotension, unspecified; Z88.8 Allergy status to other drugs, medicaments and biological substances; Z99.2 Dependence on renal dialysis; Z98.51 Tubal ligation status; Z79.899 Other long term (current) drug therapy
CPT/HCPCS: 0240U; 36415; 36416; 51701; 71045; 71275; 76705; 80048; 80053; 81003; 81015; 82140; 82330; 82533; 82553; 82803; 83690; 83880; 84145; 84484; 85025; 85379; 85610; 85652; 85730; 86140; 87086; 90935; 93005; 93306; 96374; G0257; J0696; J1644; J2405; J2543; J3490; Q0177; Q9967

== ENCOUNTER 2020-10-15 10:39 | Inpatient (IN) | payer SELFPAY ==
[2020-10-15] MEDS ORDERED: Acetaminophen 650 MG Suppository PR PRN (11:59)
[2020-10-15] MEDS ORDERED: Ondansetron PF 4 MG/2 ML Vial IVP PRN (11:59)
[2020-10-15] MEDS ORDERED: Acetaminophen 325 MG TAB PO PRN (11:59)
[2020-10-15] MEDS ORDERED: Ondansetron ODT 4 MG TAB PO PRN (11:59)
[2020-10-15] MEDS ORDERED: Norepinephrine 8 MG/0.9% NS 250 ML IVPB SCH (12:30)
[2020-10-15 12:33] VITALS: BMI 37.4
[2020-10-15] MEDS ORDERED: hydrOXYzine Pamoate 25 mg Capsule PO PRN (12:50)
[2020-10-15 13:04] VITALS: BP 78/45
[2020-10-15] MEDS ORDERED: Gabapentin 100 MG CAP PO SCH (15:00)
[2020-10-15] MEDS ORDERED: Midodrine HCl 5 MG TAB PO SCH (15:00)
[2020-10-15 16:42] VITALS: TEMP 98.2
[2020-10-15] MEDS ORDERED: Morphine 4 MG/ML VIAL ONE (17:07)
[2020-10-15] MEDS: Sodium Chloride 0.9% 1,000 ML IV SCH ×2 (17:12→17:52)
[2020-10-15] MEDS ORDERED: Morphine 2 MG/ML VIAL SLOW IVP PRN (17:20)
[2020-10-15] MEDS ORDERED: Heparin 5,000 UNITS/ML VIAL SC SCH (21:00)
[2020-10-16] MEDS ORDERED: FLU VACC QS2020-21(6MOS UP)/PF 60 MCG/0.5 ML SYRINGE IM ONE (09:00)
[2020-10-16] MEDS ORDERED: Pantoprazole 40 MG VIAL IVP SCH (09:00)
[2020-10-16] MEDS ORDERED: Enoxaparin Sodium 40 MG/0.4 ML SYRINGE SC SCH (09:00)
== END 2020-10-15 18:50 | disposition expired | DRG 204 ==
LOC: CCU 11:29
PROVIDERS: ADMIT Internal Medicine; ATTEND Internal Medicine
PROC: 5A09357 Assistance with Respiratory Ventilation, Less than 24 Consecutive Hours, Continuous Positive Airway Pressure (ICD-10-PCS; principal; 2020-10-15)
DX: R06.03 Acute respiratory distress (principal); N18.6 End stage renal disease; I12.0 Hypertensive chronic kidney disease with stage 5 chronic kidney disease or end stage renal disease; J94.8 Other specified pleural conditions; R57.9 Shock, unspecified; K74.60 Unspecified cirrhosis of liver; Z66 Do not resuscitate; Z20.822 Contact with and (suspected) exposure to COVID-19; D63.1 Anemia in chronic kidney disease; K72.90 Hepatic failure, unspecified without coma; E66.01 Morbid (severe) obesity due to excess calories; Z99.2 Dependence on renal dialysis; Z86.19 Personal history of other infectious and parasitic diseases; Z98.51 Tubal ligation status; Z91.81 History of falling; Z68.37 Body mass index [BMI] 37.0-37.9, adult
CPT/HCPCS: 71045; 94660; J2270